=== PATIENT | male | born 1975 | race Caucasian/White ===

== ENCOUNTER 2023-01-06 09:56 | Inpatient (IN) ==
[2023-01-06] MEDS ORDERED: 0.9 % SODIUM CHLORIDE 1,000 ML IV ONE ×2 (10:13→14:12)
[2023-01-06] MEDS ORDERED: INSULIN REGULAR, HUMAN 50 UNIT in 0.9 % SODIUM CHLORIDE 99.5 ML IV SCH ×2 (10:30→11:45)
[2023-01-06 11:15] LABS: POC Calcium, Ionized 1.07 (1.16-1.32); POC Creatinine 1.2 (0.6-1.2); POC Potassium 6.2 (3.3-5.1)
--- NOTE | 2023-01-06 11:25 | Emergency Department Note ---
HPI General Chief complaint: Nausea/Vomiting/Diarrhea Stated complaint: nausea Time Seen by Provider: 01/06/23 10:13 Source: patient Mode of arrival: ambulatory Limitations: no limitations History of Present Illness HPI Narrative: 47-year-old male type I diabetic with poor control due to noncompliance presents to the ER with weakness, tachycardia, and shortness of breath. Patient states that he is on insulin pump, but this quit working 7 days ago. Since then he has been intermittently giving himself insulin but does not follow a protocol. He gave himself insulin yesterday, but does not know how much. He does not routinely check his blood sugars. Apparently he called tech-support for his insulin pump, but was unable to get this taken care of. On exam he is tachypneic with respiratory rate of 30, heart rate is 125. EKG shows a narrow complex tachycardia. The past medical history is significant for hypertension, hypothyroidism, anxiety, GERD, PTSD, ADHD. Related Data Home Medications Medication Instructions Recorded Confirmed cyclobenzaprine 10 mg tablet 10 mg PO QPM 07/05/22 01/06/23 ergocalciferol (vitamin D2) 1,250 1,250 mcg PO QWEEK 07/05/22 01/06/23 mcg (50,000 unit) capsule insulin aspart U-100 100 unit/mL 100 unit subcut DAILY 07/05/22 01/06/23 subcutaneous solution (Novolog U-100 Insulin aspart) levothyroxine 200 mcg tablet 200 mcg PO QDAY 07/05/22 01/06/23 lisinopril 10 mg tablet 10 mg PO BID 07/05/22 01/06/23 methocarbamol 500 mg tablet 500 mg PO TID PRN Pain 07/05/22 01/06/23 pregabalin 300 mg capsule 300 mg PO BID 07/05/22 01/06/23 albuterol sulfate 90 mcg/actuation 2 puff inhalation Q4H 08/17/22 01/06/23 aerosol inhaler fluticasone propionate 50 1 spray intranasal QDAY 08/17/22 01/06/23 mcg/actuation nasal spray,suspension ibuprofen 800 mg tablet 800 mg PO TID 08/17/22 01/06/23 rimegepant 75 mg disintegrating 75 mg PO QDAY 08/17/22 01/06/23 tablet (Nurtec ODT) dextroamphetamine-amphetamine ER 20 mg PO DAILY 01/06/23 01/06/23 30 mg 24hr capsule,extend release (Adderall XR) diazepam 5 mg tablet 5 mg PO DAILY 01/06/23 01/06/23 hydroxyzine HCl 50 mg tablet 50 mg PO Q4-6HP PRN anxiety 01/06/23 01/06/23 levothyroxine 175 mcg tablet 200 mcg PO DAILY 01/06/23 01/06/23 olanzapine 10 mg tablet 10 mg PO QPM 01/06/23 01/06/23 Allergies Allergy/AdvReac Type Severity Reaction Status Date / Time No Known Drug Allergies Allergy Verified 11/28/22 07:53 Review of Systems ROS ROS Narrative: Narrative: All systems ED: reviewed and negative except as stated. PFS Narrative Patient History Narrative: Narrative: Medical/Surgical/Family History All Active Problems (Updated 01/06/23 @ 15:33 by Clara Estrada PA-C) Contusion of rib on left side (Acute) Bipolar disorder (Chronic) Diabetic peripheral neuropathy (Chronic) Migraine (Chronic) Essential hypertension (Chronic) Multiple joint pain (Chronic) Headache (Chronic) Nausea (Chronic) Restless legs (Chronic) Vitamin D deficiency (Chronic) Abdominal bloating (Chronic) Asthma (Chronic) Chronic constipation (Chronic) Hypothyroidism (Chronic) Nocturnal leg cramps (Chronic) Type 1 diabetes mellitus (Chronic) Anxiety disorder (Chronic) GERD (gastroesophageal reflux disease) (Chronic) Chronic post-traumatic stress disorder (PTSD) (Chronic) ADHD (attention deficit hyperactivity disorder), combined type (Acute) DKA, type 1 (Acute) Acute metabolic encephalopathy (Acute) Sepsis (Acute) Medical History Abdominal bloating Anxiety disorder Asthma Bipolar disorder Chronic constipation Diabetic peripheral neuropathy Essential hypertension GERD (gastroesophageal reflux disease) Headache Hypothyroidism Migraine Multiple joint pain Nausea Nocturnal leg cramps Restless legs Type 1 diabetes mellitus Vitamin D deficiency Family History Father Hypertensive disorder Mental disorder Alcohol abuse Seizure Mother Hypertensive disorder Mental disorder Alcohol abuse Disorder of thyroid gland Social History Smoking Status: Current every day smoker Alcohol Intake Frequency: does not drink Substance Use: marijuana Exam Narrative Narrative: Narrative: General Limitations: no limitations Course Course Course Narrative: 47-year-old male presents in DKA Reevaluation(s) Reevaluation #1: Obtain DKA labs, lactic acid, beta hydroxybutyrate, EKG, UA Establish IV and give 2 L normal saline IV bolus Obtain UA Reevaluation #2: Bicarbonate is 4.1 with a pH of 7.01. Lactic acid is 4.6 Creatinine is within normal limits. Potassium is 6.2, corrected sodium is 138 EKG shows a narrow complex tachycardia. It appears irregular and is read as A flutter, question this accuracy given there seems to be a lot of artifact with this rapid respirations. We will reevaluate this once his acidosis is corrected. Reevaluation #3: Given a bicarb less than 5 with pH of 7.01. Bicarb deficit is over 1000 mEq. Give 50 mEq bicarbonate bolus and recheck CBG in about 30 minutes. White blood cell count was 22,400 and neutrophils are 22. He may have a superimposed sepsis picture with his DKA. We have ordered blood cultures and started high-dose IV Zosyn. Discussed case with hospitalist who recommends slowing rate down to see what und erlying rhythm is. We will give her 5 mg of IV metoprolol Time: 13:36 Additional Reevaluation(s): Patient has gluteal fold skin maceration, no cellulitis and no induration to suggest abscess. There is first-degree decubitus skin changes. Repeat VBG after a liter and a half of IV fluids and 1 amp of bicarb is worsening with pH is less than 7, bicarb is undetectable, and lactic acid is 5.67. Repeat EKG shows likely Aflutter with rate of 113 and prolonged QTx of 529 ms. Difficult to ascertain ST segment changes and a troponin is checked, which is 0.03 which is reassuring that this is not cardiac ischemia. 1420: Patients ABG with worsening perimeters. Considered sepsis and ordered 1L IVF bolus 30mL/Kg. This was bolused through his 18 gauge access in his right brachial with immediate infiltration of his IV suggesting that his Insulin had not been infusing. Patient is now getting central access. Please see Valdemar landa note for procedure details. Vital Signs Vital signs: Vital Signs Temperature 98.1 F 01/06/23 09:59 Pulse Rate 135 H 01/06/23 09:59 Respiratory Rate 28 H 01/06/23 09:59 Blood Pressure 156/101 01/06/23 09:59 Pulse Oximetry (%) 98 01/06/23 09:59 Oxygen Delivery Method Room Air 01/06/23 09:59 Temperature 98.1 F 01/06/23 09:59 Pulse Rate 148 H 01/06/23 16:00 Respiratory Rate 23 H 01/06/23 16:00 Blood Pressure 140/88 01/06/23 16:00 Pulse Oximetry (%) 100 01/06/23 16:00 Oxygen Delivery Method Room Air 01/06/23 14:01 MDM MDM Narrative Medical decision making narrative: DKA Type 1 diabetes Leukocytosis Metabolic encephalopathy Narrow complex tachycardia Patient will need admission for stabilization. He is currently on an insulin drip with rapid IV fluid replacement. The patients IV that was running insulin had been infiltrated, which is why his DKA had been worsening. A Right IJ central line was placed and his DKA is gradually stabilizing. He has received 3L IV NS and 150 meq bicarb bolus with Bicarb drip initiated. Heart rhythm appears to be Aflutter, which is new onset. Given his leukocytosis, blood cultures were drawn and they were only able to obtain 1 set from the central line due to poor access. 4.5G IV Zoysn given. Lab Data 01/06/23 11:03 01/06/23 11:03 Labs: Lab Results 01/06/23 01/06/23 01/06/23 Range/Units 11:03 11:03 11:03 WBC 24.3 H (4.5-11.0) K/mcL RBC 5.47 (4.63-6.08) M/mcL Hgb 16.3 (13.7-17.5) g/dL Hct 51.2 H (40.1-51.0) % POC Hct (41-55) MCV 93.6 (80.0-100.0) fL MCH 29.8 (26.0-34.0) pg MCHC 31.8 (31.0-36.0) g/dL RDW 14.8 H (11.5-14.5) % Plt Count 315 (140-440) K/mcL MPV 11.6 (8.8-12.5) fL Immature Gran % (Auto) 0.8 H (0.0-0.5) % Neut % (Auto) 92.4 H (38.0-78.0) % Lymph % (Auto) 2.6 L (15.5-49.0) % [place] % (Auto) 3.9 (1.0-12.0) % Eos % (Auto) 0.1 (0.0-7.0) % Baso % (Auto) 0.2 (0.0-2.0) % Lymph # (Auto) 0.63 L (1.50-4.80) K/mcL [place] # (Auto) 0.96 H (0.10-0.90) K/mcL Eos # (Auto) 0.02 (0.00-0.70) K/mcL Baso # (Auto) 0.06 (0.00-0.30) K/mcL Immature Gran # 0.19 H (0.00-0.05) K/mcl Absolute Neutrophils 22.46 H (1.80-8.00) K/mcL POC PT (11.9-14.5) POC INR (0.8-1.2) POC VBG pH (7.32-7.42) POC VBG pCO2 at Temp (41-51) POC VBG pO2 (25-40) POC VBG HCO3 (24-28) POC VBG Total CO2 (25-29) POC Venous O2 Sat (40-70) POC VBG Base Excess (-2-2) VBG Lactic Acid (0.5-2) POC Sodium (133-145) Sodium 125 L (133-145) mmol/L POC Potassium (3.3-5.1) Potassium 7.1 H* (3.3-5.1) mmol/L POC Chloride (96-108) Chloride 90 L (96-108) mmol/L Carbon Dioxide 4 L* (22-30) mmol/L POC Total CO2 (22-30) Anion Gap 31.0 H (8.0-16.0) POC BUN (6-20) BUN 26 H (6-20) mg/dL Creatinine 1.6 H (0.7-1.2) mg/dL POC Creatinine (0.6-1.2) GFR Calculation 50 Glucose 699 H* (70-105) mg/dL POC Glucose (70-105) Calcium 9.0 (8.6-10.4) mg/dL POC WB Ioniz Calcium (1.16-1.32) Magnesium (1.6-2.5) mg/dL Total Bilirubin 0.5 (0.1-1.0) mg/dL AST 15 (<40) U/L ALT 16 (<40) U/L Alkaline Phosphatase 145 H (39-117) U/L Total Protein 7.9 (5.9-8.4) gm/dL Albumin 4.3 (3.2-5.2) gm/dL Globulin 3.6 (2.2-3.7) gm/dL Albumin/Globulin Ratio 1.2 (1.0-2.3) Beta-Hydroxybutyrate 9.65 H (<0.27) mmol/L Urine Color Urine Appearance (Clear) Urine pH (5.0-9.0) Ur Specific [place] (1.000-1.035) Urine Protein (Negative) mg/dL Urine Glucose (UA) (Negative) mg/dL Urine Ketones (Negative) mg/dL Urine Occult Blood (Negative) mg/dL Urine Nitrate (Negative) Urine Bilirubin (Negative) mg/dL Urine Urobilinogen mg/dL Ur Leukocyte Esterase (Negative) /uL Urine RBC (0-3) /hpf Urine WBC (0-4) /hpf Ur Squamous Epith Cells (0-4) /hpf Urine Bacteria (0) /hpf Hyaline Casts (0-2) /lph Granular Casts (0-0) /lph Urine Mucus (None) /hpf Ur Culture Indicated? POC Troponin I (0.00-0.08) 01/06/23 01/06/23 01/06/23 Range/Units 11:09 11:12 11:34 WBC (4.5-11.0) K/mcL RBC (4.63-6.08) M/mcL Hgb (13.7-17.5) g/dL Hct (40.1-51.0) % POC Hct 51.0 (41-55) MCV (80.0-100.0) fL MCH (26.0-34.0) pg MCHC (31.0-36.0) g/dL RDW (11.5-14.5) % Plt Count (140-440) K/mcL MPV (8.8-12.5) fL Immature Gran % (Auto) (0.0-0.5) % Neut % (Auto) (38.0-78.0) % Lymph % (Auto) (15.5-49.0) % [place] % (Auto) (1.0-12.0) % Eos % (Auto) (0.0-7.0) % Baso % (Auto) (0.0-2.0) % Lymph # (Auto) (1.50-4.80) K/mcL [place] # (Auto) (0.10-0.90) K/mcL Eos # (Auto) (0.00-0.70) K/mcL Baso # (Auto) (0.00-0.30) K/mcL Immature Gran # (0.00-0.05) K/mcl Absolute Neutrophils (1.80-8.00) K/mcL POC PT (11.9-14.5) POC INR (0.8-1.2) POC VBG pH 7.01 L* (7.32-7.42) POC VBG pCO2 at Temp 16.4 L* (41-51) POC VBG pO2 57 H (25-40) POC VBG HCO3 4.1 L* (24-28) POC VBG Total CO2 < 5.0 L (25-29) POC Venous O2 Sat 74.0 H (40-70) POC VBG Base Excess -27.0 L (-2-2) VBG Lactic Acid 4.6 H* (0.5-2) POC Sodium 129 L (133-145) Sodium (133-145) mmol/L POC Potassium 6.2 H* (3.3-5.1) Potassium (3.3-5.1) mmol/L POC Chloride 105 (96-108) Chloride (96-108) mmol/L Carbon Dioxide (22-30) mmol/L POC Total CO2 6.0 L* (22-30) Anion Gap (8.0-16.0) POC BUN 26 H (6-20) BUN (6-20) mg/dL Creatinine (0.7-1.2) mg/dL POC Creatinine 1.2 (0.6-1.2) GFR Calculation Glucose (70-105) mg/dL POC Glucose 668 H* (70-105) Calcium (8.6-10.4) mg/dL POC WB Ioniz Calcium 1.07 L (1.16-1.32) Magnesium 2.3 (1.6-2.5) mg/dL Total Bilirubin (0.1-1.0) mg/dL AST (<40) U/L ALT (<40) U/L Alkaline Phosphatase (39-117) U/L Total Protein (5.9-8.4) gm/dL Albumin (3.2-5.2) gm/dL Globulin (2.2-3.7) gm/dL Albumin/Globulin Ratio (1.0-2.3) Beta-Hydroxybutyrate (<0.27) mmol/L Urine Color Urine Appearance (Clear) Urine pH (5.0-9.0) Ur Specific [place] (1.000-1.035) Urine Protein (Negative) mg/dL Urine Glucose (UA) (Negative) mg/dL Urine Ketones (Negative) mg/dL Urine Occult Blood (Negative) mg/dL Urine Nitrate (Negative) Urine Bilirubin (Negative) mg/dL Urine Urobilinogen mg/dL Ur Leukocyte Esterase (Negative) /uL Urine RBC (0-3) /hpf Urine WBC (0-4) /hpf Ur Squamous Epith Cells (0-4) /hpf Urine Bacteria (0) /hpf Hyaline Casts (0-2) /lph Granular Casts (0-0) /lph Urine Mucus (None) /hpf Ur Culture Indicated? POC Troponin I (0.00-0.08) 01/06/23 01/06/23 01/06/23 Range/Units 12:55 13:29 14:25 WBC (4.5-11.0) K/mcL RBC (4.63-6.08) M/mcL Hgb (13.7-17.5) g/dL Hct (40.1-51.0) % POC Hct (41-55) MCV (80.0-100.0) fL MCH (26.0-34.0) pg MCHC (31.0-36.0) g/dL RDW (11.5-14.5) % Plt Count (140-440) K/mcL MPV (8.8-12.5) fL Immature Gran % (Auto) (0.0-0.5) % Neut % (Auto) (38.0-78.0) % Lymph % (Auto) (15.5-49.0) % [place] % (Auto) (1.0-12.0) % Eos % (Auto) (0.0-7.0) % Baso % (Auto) (0.0-2.0) % Lymph # (Auto) (1.50-4.80) K/mcL [place] # (Auto) (0.10-0.90) K/mcL Eos # (Auto) (0.00-0.70) K/mcL Baso # (Auto) (0.00-0.30) K/mcL Immature Gran # (0.00-0.05) K/mcl Absolute Neutrophils (1.80-8.00) K/mcL POC PT 17.7 H (11.9-14.5) POC INR 1.5 H (0.8-1.2) POC VBG pH (7.32-7.42) POC VBG pCO2 at Temp (41-51) POC VBG pO2 (25-40) POC VBG HCO3 (24-28) POC VBG Total CO2 (25-29) POC Venous O2 Sat (40-70) POC VBG Base Excess (-2-2) VBG Lactic Acid (0.5-2) POC Sodium (133-145) Sodium (133-145) mmol/L POC Potassium (3.3-5.1) Potassium (3.3-5.1) mmol/L POC Chloride (96-108) Chloride (96-108) mmol/L Carbon Dioxide (22-30) mmol/L POC Total CO2 (22-30) Anion Gap (8.0-16.0) POC BUN (6-20) BUN (6-20) mg/dL Creatinine (0.7-1.2) mg/dL POC Creatinine (0.6-1.2) GFR Calculation Glucose (70-105) mg/dL POC Glucose (70-105) Calcium (8.6-10.4) mg/dL POC WB Ioniz Calcium (1.16-1.32) Magnesium (1.6-2.5) mg/dL Total Bilirubin (0.1-1.0) mg/dL AST (<40) U/L ALT (<40) U/L Alkaline Phosphatase (39-117) U/L Total Protein (5.9-8.4) gm/dL Albumin (3.2-5.2) gm/dL Globulin (2.2-3.7) gm/dL Albumin/Globulin Ratio (1.0-2.3) Beta-Hydroxybutyrate (<0.27) mmol/L Urine Color Yellow Urine Appearance Clear (Clear) Urine pH 5.0 (5.0-9.0) Ur Specific [place] 1.021 (1.000-1.035) Urine Protein 30 A (Negative) mg/dL Urine Glucose (UA) >=500 A (Negative) mg/dL Urine Ketones 80 A (Negative) mg/dL Urine Occult Blood 0.03 (Negative) mg/dL Urine Nitrate Negative (Negative) Urine Bilirubin Negative (Negative) mg/dL Urine Urobilinogen Negative mg/dL Ur Leukocyte Esterase Negative (Negative) /uL Urine RBC < 1 (0-3) /hpf Urine WBC 1 (0-4) /hpf Ur Squamous Epith Cells 0 (0-4) /hpf Urine Bacteria None (0) /hpf Hyaline Casts 9 H (0-2) /lph Granular Casts 1 H (0-0) /lph Urine Mucus Few A (None) /hpf Ur Culture Indicated? No POC Troponin I 0.03 (0.00-0.08) 01/06/23 01/06/23 01/06/23 Range/Units 15:06 16:01 16:02 WBC (4.5-11.0) K/mcL RBC (4.63-6.08) M/mcL Hgb (13.7-17.5) g/dL Hct (40.1-51.0) % POC Hct 50.0 (41-55) MCV (80.0-100.0) fL MCH (26.0-34.0) pg MCHC (31.0-36.0) g/dL RDW (11.5-14.5) % Plt Count (140-440) K/mcL MPV (8.8-12.5) fL Immature Gran % (Auto) (0.0-0.5) % Neut % (Auto) (38.0-78.0) % Lymph % (Auto) (15.5-49.0) % [place] % (Auto) (1.0-12.0) % Eos % (Auto) (0.0-7.0) % Baso % (Auto) (0.0-2.0) % Lymph # (Auto) (1.50-4.80) K/mcL [place] # (Auto) (0.10-0.90) K/mcL Eos # (Auto) (0.00-0.70) K/mcL Baso # (Auto) (0.00-0.30) K/mcL Immature Gran # (0.00-0.05) K/mcl Absolute Neutrophils (1.80-8.00) K/mcL POC PT (11.9-14.5) POC INR (0.8-1.2) POC VBG pH 7.16 L* (7.32-7.42) POC VBG pCO2 at Temp 15.1 L* (41-51) POC VBG pO2 44 H (25-40) POC VBG HCO3 5.4 L* (24-28) POC VBG Total CO2 6.0 L (25-29) POC Venous O2 Sat 68.0 (40-70) POC VBG Base Excess -23.0 L (-2-2) VBG Lactic Acid 2.9 H 2.4 H (0.5-2) POC Sodium 132 L (133-145) Sodium (133-145) mmol/L POC Potassium 4.2 (3.3-5.1) Potassium (3.3-5.1) mmol/L POC Chloride 105 (96-108) Chloride (96-108) mmol/L Carbon Dioxide (22-30) mmol/L POC Total CO2 7.0 L* (22-30) Anion Gap (8.0-16.0) POC BUN 25 H (6-20) BUN (6-20) mg/dL Creatinine (0.7-1.2) mg/dL POC Creatinine 1.1 (0.6-1.2) GFR Calculation Glucose (70-105) mg/dL POC Glucose 453 H* (70-105) Calcium (8.6-10.4) mg/dL POC WB Ioniz Calcium 1.07 L (1.16-1.32) Magnesium (1.6-2.5) mg/dL Total Bilirubin (0.1-1.0) mg/dL AST (<40) U/L ALT (<40) U/L Alkaline Phosphatase (39-117) U/L Total Protein (5.9-8.4) gm/dL Albumin (3.2-5.2) gm/dL Globulin (2.2-3.7) gm/dL Albumin/Globulin Ratio (1.0-2.3) Beta-Hydroxybutyrate (<0.27) mmol/L Urine Color Urine Appearance (Clear) Urine pH (5.0-9.0) Ur Specific [place] (1.000-1.035) Urine Protein (Negative) mg/dL Urine Glucose (UA) (Negative) mg/dL Urine Ketones (Negative) mg/dL Urine Occult Blood (Negative) mg/dL Urine Nitrate (Negative) Urine Bilirubin (Negative) mg/dL Urine Urobilinogen mg/dL Ur Leukocyte Esterase (Negative) /uL Urine RBC (0-3) /hpf Urine WBC (0-4) /hpf Ur Squamous Epith Cells (0-4) /hpf Urine Bacteria (0) /hpf Hyaline Casts (0-2) /lph Granular Casts (0-0) /lph Urine Mucus (None) /hpf Ur Culture Indicated? POC Troponin I (0.00-0.08) Discharge Plan Patient/Caregiver Discharge Instructions Pt seen by [employer] WORK[employer]/PA only: No Clinical Impression: DKA, type 1, Acute metabolic encephalopathy, Sepsis Patient Disposition: Xfer As Inpt ([facility]) Discharge Date/Time: 01/06/23 16:15
[2023-01-06] MEDS ORDERED: INSULIN REGULAR, HUMAN 1 UNIT/0.01 ML UNIT ONE (11:40)
[2023-01-06 12:14] LABS: Basophils # (Auto) 0.06 K/mcL (0.00-0.30); Basophils % (Auto) 0.2 % (0.0-2.0); Eosinophils # (Auto) 0.02 K/mcL (0.00-0.70); Eosinophils % (Auto) 0.1 % (0.0-7.0); Hematocrit 51.2 % (40.1-51.0); Hemoglobin 16.3 g/dL (13.7-17.5); Lymphocytes # (Auto) 0.63 K/mcL (1.50-4.80); Lymphocytes % (Auto) 2.6 % (15.5-49.0); Mean Cell Volume 93.6 fL (80.0-100.0); Mean Corpuscular HGB Conc 31.8 g/dL (31.0-36.0); Mean Platelet Volume 11.6 fL (8.8-12.5); Monocytes # (Auto) 0.96 K/mcL (0.10-0.90); Monocytes % (Auto) 3.9 % (1.0-12.0); Neutrophils % (Auto) 92.4 % (38.0-78.0); Platelet Count 315 K/mcL (140-440); RBC 5.47 M/mcL (4.63-6.08); Red Cell Distribution Width 14.8 % (11.5-14.5); WBC 24.3 K/mcL (4.5-11.0)
[2023-01-06] MEDS ORDERED: SODIUM BICARBONATE 50 MEQ/50 ML VIAL ONE ×3 (12:14→15:34)
[2023-01-06] MEDS ORDERED: SODIUM BICARBONATE VIAL 100 MEQ in DEXTROSE 5% IN WATER 900 ML IV SCH (12:15)
--- NOTE | 2023-01-06 12:19 | Internal Med History&Physical ---
HPI History of Present Illness Patient information: Note initiated : 01/06/23 at 12:15 pm Service Date, if different from initiated Date: [] Patient: Bo Kee 47 y/o M admitted on for nausea. Chief Complaint: [] History of present illness: History of Present Illness 47-year-old male with history of poorly controlled diabetes mellitus 1, noncompliance with medication, hypertension, hypothyroidism, anxiety, PTSD, ADHD, GERD presented with nausea, vomiting, generalized weakness, palpitations for the past 5 to 7 days. Patient is on insulin pump but this stopped working around 7 days ago. Since then he has been guessing insulin dose and giving himself insulin intermittently without following any protocol and has not checked his blood glucose for the past 1 week. He gave himself insulin yesterday but does not know how much. Apparently he called customer support for his insulin pump but was unable to take care of that. His significant other reported that patient is also somewhat confused. On evaluation patient was tachycardic with heart rate ranging from 116-140s, tachypneic with respiratory rate 28-43. Blood pressure was slightly elevated. EKG showed atrial flutter, with heart rate 145 bpm. Troponin obtained was negative. Patient did not have any chest pain., Labs showed leukocytosis of 24,000, hemoglobin 16.3, VBG with pH 7.01, bicarb 4.1 bicarbonate is 4.1. Lactic acid is 4.6. Potassium 6.2. Glucose of 699. Creatinine is within normal limits. Potassium is 6.2, corrected sodium is 138. Chest x-ray showed no acute finding. UA unremarkable. No apparent source of infection. Patient will be admitted to ICU for severe diabetic ketoacidosis, metabolic encephalopathy atrial flutter, hyperkalemia on IV insulin DKA protocol. Review of system Patient reports weakness, nausea, vomiting but no diarrhea Patient is somewhat confused but no focal deficits no headache Patient reports no chest pain, no palpitation no diaphoresis Excessive thirst reported, polyuria No muscle pain No skin lesions Physical examination Patient was somewhat somnolent, appeared critically ill, his eyes were closed, he was dehydrated however was able to answer questions and would open eyes Normocephalic, atraumatic Oral mucosa was very dry S1 and S2, tachycardia with heart rate in 130s, rhythm appeared regular, no murmurs heard Abdomen soft and nontender Somewhat somnolent, becomes alert, no focal deficits Mood appears stable Skin appears very dry with poor turgor, no erythema or rashes noted Assessment and plan Severe diabetic ketoacidosis, beta-hydroxybutyrate 9.65, lactic acid 4.6, PH 7.01, bicarb 4.1 on VBG, chem with CO2 of 4, AG 31 Anion gap acidosis Admitted to ICU on IV insulin per DKA protocol Patient received bicarb 150 meq, given severe acidosis continue on bicarb drip Continue IV fluids, lactic acidosis is clear during ABGs to monitor acidosis Monitor renal functions and electrolytes and replace as needed Diabetes mellitus 2 with hyperglycemia of 699 Patient with noncompliance with insulin. Insulin pump stopped working 7 days ago. Will obtain A1c. Currently on IV insulin Noncompliance with medical therapy Counseled on compliance Hyperkalemia Expected to improve with insulin and fluids will monitor Metabolic encephalopathy Secondary to DKA and severe acidosis. Atrial flutter with RVR New onset, patient received IV metoprolol with improvement in heart rate. Will continue with IV diltiazem gtt., echocardiogram ordered. [id number] score is 1 Significant leukocytosis UA and chest x-ray negative. Patient received 1 dose of Zosyn. Will monitor and will keep a low threshold for initiating antibiotics if any fever Hyponatremia Pseudohyponatremia in the setting of hyperglycemia. Hypertension Currently elevated blood pressure, will manage with IV hydralazine Hypothyroidism Obtain TSH, continue with levothyroxine 200 mcg daily home dose Asthma Continue fluticasone nasal spray and as needed albuterol Anxiety, PTSD, ADHD Continue home dose Adderall, hydroxyzine GERD Continue famotidine IV twice daily DVT prophylaxis SCDs CODE STATUS Full code PFSH PFSH All Active Problems (Updated 01/06/23 @ 15:33 by lCara Estrada PA-C) Contusion of rib on left side (Acute) Bipolar disorder (Chronic) Diabetic peripheral neuropathy (Chronic) Migraine (Chronic) Essential hypertension (Chronic) Multiple joint pain (Chronic) Headache (Chronic) Nausea (Chronic) Restless legs (Chronic) Vitamin D deficiency (Chronic) Abdominal bloating (Chronic) Asthma (Chronic) Chronic constipation (Chronic) Hypothyroidism (Chronic) Nocturnal leg cramps (Chronic) Type 1 diabetes mellitus (Chronic) Anxiety disorder (Chronic) GERD (gastroesophageal reflux disease) (Chronic) Chronic post-traumatic stress disorder (PTSD) (Chronic) ADHD (attention deficit hyperactivity disorder), combined type (Acute) DKA, type 1 (Acute) Acute metabolic encephalopathy (Acute) Sepsis (Acute) Medical History Abdominal bloating Anxiety disorder Asthma Bipolar disorder Chronic constipation Diabetic peripheral neuropathy Essential hypertension GERD (gastroesophageal reflux disease) Headache Hypothyroidism Migraine Multiple joint pain Nausea Nocturnal leg cramps Restless legs Type 1 diabetes mellitus Vitamin D deficiency Family History Father Hypertensive disorder Mental disorder Alcohol abuse Seizure Mother Hypertensive disorder Mental disorder Alcohol abuse Disorder of thyroid gland Social History 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 smoking status: Current every day smoker tobacco type: cigarettes per day: 1 alcohol intake frequency: does not drink substance use type: marijuana MEDS/ALLERGIES Home Medications and Allergies Home Medications Medication Instructions Recorded Confirmed Type cyclobenzaprine 10 mg tablet 10 mg PO QPM 07/05/22 01/06/23 History ergocalciferol (vitamin D2) 1,250 1,250 mcg PO QWEEK 07/05/22 01/06/23 History mcg (50,000 unit) capsule insulin aspart U-100 100 unit/mL 100 unit subcut DAILY 07/05/22 01/06/23 History subcutaneous solution (Novolog U-100 Insulin aspart) levothyroxine 200 mcg tablet 200 mcg PO QDAY 07/05/22 01/06/23 History lisinopril 10 mg tablet 10 mg PO BID 07/05/22 01/06/23 History methocarbamol 500 mg tablet 500 mg PO TID PRN Pain 07/05/22 01/06/23 History pregabalin 300 mg capsule 300 mg PO BID 07/05/22 01/06/23 History albuterol sulfate 90 mcg/actuation 2 puff inhalation Q4H 08/17/22 01/06/23 History aerosol inhaler fluticasone propionate 50 1 spray intranasal QDAY 08/17/22 01/06/23 History mcg/actuation nasal spray,suspension ibuprofen 800 mg tablet 800 mg PO TID 08/17/22 01/06/23 History rimegepant 75 mg disintegrating 75 mg PO QDAY 08/17/22 01/06/23 History tablet (Nurtec ODT) dextroamphetamine-amphetamine ER 20 mg PO DAILY 01/06/23 01/06/23 History 30 mg 24hr capsule,extend release (Adderall XR) diazepam 5 mg tablet 5 mg PO DAILY 01/06/23 01/06/23 History hydroxyzine HCl 50 mg tablet 50 mg PO Q4-6HP PRN anxiety 01/06/23 01/06/23 History levothyroxine 175 mcg tablet 200 mcg PO DAILY 01/06/23 01/06/23 History olanzapine 10 mg tablet 10 mg PO QPM 01/06/23 01/06/23 History Allergies Allergy/AdvReac Type Severity Reaction Status Date / Time No Known Drug Allergies Allergy Verified 11/28/22 07:53 EXAM Constitutional Vitals: Temp Pulse Resp BP Pulse Ox O2 Del Method 98.1 F 134 H 31 H 174/102 100 Room Air 01/06/23 09:59 01/06/23 11:52 01/06/23 11:52 01/06/23 11:47 01/06/23 11:52 01/06/23 09:59 DATA Data Completed and Pending Labs: Labs from last 24 hours 01/06/23 01/06/23 01/06/23 11:12 11:09 11:03 WBC RBC Hgb Hct POC Hct 51.0 MCV MCH MCHC RDW Plt Count MPV Immature Gran % (Auto) Neut % (Auto) Lymph % (Auto) [place] % (Auto) Eos % (Auto) Baso % (Auto) Lymph # (Auto) [place] # (Auto) Eos # (Auto) Baso # (Auto) Immature Gran # Absolute Neutrophils POC VBG pH 7.01 L* POC VBG pCO2 at Temp 16.4 L* POC VBG pO2 57 H POC VBG HCO3 4.1 L* POC VBG Total CO2 < 5.0 L POC Venous O2 Sat 74.0 H POC VBG Base Excess -27.0 L VBG Lactic Acid 4.6 H* POC Sodium 129 L Sodium POC Potassium 6.2 H* Potassium POC Chloride 105 Chloride Carbon Dioxide POC Total CO2 6.0 L* Anion Gap POC BUN 26 H BUN Creatinine POC Creatinine 1.2 GFR Calculation Glucose POC Glucose 668 H* Calcium POC WB Ioniz Calcium 1.07 L Total Bilirubin AST ALT Alkaline Phosphatase Total Protein Albumin Globulin Albumin/Globulin Ratio Beta-Hydroxybutyrate Pending 01/06/23 01/06/23 11:03 11:03 WBC 24.3 H RBC 5.47 Hgb 16.3 Hct 51.2 H POC Hct MCV 93.6 MCH 29.8 MCHC 31.8 RDW 14.8 H Plt Count 315 MPV 11.6 Immature Gran % (Auto) 0.8 H Neut % (Auto) 92.4 H Lymph % (Auto) 2.6 L [place] % (Auto) 3.9 Eos % (Auto) 0.1 Baso % (Auto) 0.2 Lymph # (Auto) 0.63 L [place] # (Auto) 0.96 H Eos # (Auto) 0.02 Baso # (Auto) 0.06 Immature Gran # 0.19 H Absolute Neutrophils 22.46 H POC VBG pH POC VBG pCO2 at Temp POC VBG pO2 POC VBG HCO3 POC VBG Total CO2 POC Venous O2 Sat POC VBG Base Excess VBG Lactic Acid POC Sodium Sodium Pending POC Potassium Potassium Pending POC Chloride Chloride Pending Carbon Dioxide Pending POC Total CO2 Anion Gap Pending POC BUN BUN Pending Creatinine Pending POC Creatinine GFR Calculation Pending Glucose Pending POC Glucose Calcium Pending POC WB Ioniz Calcium Total Bilirubin Pending AST Pending ALT Pending Alkaline Phosphatase Pending Total Protein Pending Albumin Pending Globulin Pending Albumin/Globulin Ratio Pending Beta-Hydroxybutyrate A/P Time Spent With Patient Time: Total time spent is greater than 50% in coordination of care (as documented) at patient's floor/unit and/or counseling patient: Initial: Total time with patient: Greater than 90 minutes Subsequent: Total time with patient: 35 - 49 minutes Critical Care Time: Yes
[2023-01-06] MEDS: SODIUM BICARBONATE 50 MEQ/50 ML VIAL IV ONE ×2 (12:20→12:35)
[2023-01-06] MEDS ORDERED: METOPROLOL TARTRATE 5 MG/5 ML VIAL IV ONE (12:22)
[2023-01-06 12:45] LABS: ALT/SGPT 16 U/L (<40); AST/SGOT 15 U/L (<40); Albumin 4.3 gm/dL (3.2-5.2); Albumin/Globulin Ratio 1.2 (1.0-2.3); Alkaline Phosphatase 145 U/L (39-117); Bilirubin,Total 0.5 mg/dL (0.1-1.0); Blood Urea Nitrogen 26 mg/dL (6-20); Carbon Dioxide 4 mmol/L (22-30); Chloride 90 mmol/L (96-108); Globulin 3.6 gm/dL (2.2-3.7); Glomerular Filtration Rate 50; Glucose 699 mg/dL (70-105)
[2023-01-06 13:27] LABS: Beta Hydroxybutyrate 9.65 mmol/L (<0.27)
[2023-01-06] MEDS ORDERED: SODIUM BICARBONATE 50 MEQ/50 ML VIAL IV ONE ×2 (13:37→13:41)
[2023-01-06 13:47] LABS: Appearance,Urine CLEAR (Clear); Bilirubin,Urine Negative (Negative); Color,Urine YELLOW; Culture Indicated,Urine No; Glucose,Urine (UA) >=500 mg/dL (Negative); Ketones,Urine 80 mg/dL (Negative); Leukocyte Esterase,Urine Negative /uL (Negative); Mucus,Urine FEW /hpf; Nitrate,Urine Negative (Negative); Protein,Urine 30 mg/dL (Negative); Specific Gravity,Urine 1.021 (1.000-1.035); Urine Blood 0.03 mg/dL (Negative); Urine Granular Cast 1 /lph (0-0); Urine Hyaline Cast 9 /lph (0-2); Urine RBC < 1 /hpf (0-3); Urine Squamous Epithelial Cell 0 /hpf (0-4); Urine WBC 1 /hpf (0-4); Urobilinogen,Urine Negative
[2023-01-06] MEDS ORDERED: SODIUM BICARBONATE VIAL 50 MEQ in DEXTROSE 5% IN WATER 1,000 ML IV SCH ×2 (14:00→15:30)
[2023-01-06] MEDS ORDERED: SODIUM CHLORIDE IV ONE (14:05)
[2023-01-06] MEDS ORDERED: PIPERACILLIN SODIUM/TAZOBACTAM 4.5 GM in DEXTROSE 5% IN WATER 50 ML IV ONE (14:08)
[2023-01-06 14:40] LABS: POC INR 1.5 (0.8-1.2); POC Pro Time 17.7 (11.9-14.5)
--- NOTE | 2023-01-06 15:11 | XRay Report ---
CLINICAL INFORMATION: post central line COMPARISON: None. FINDINGS: Right right IJ central line tip overlies the SVC right atrial junction in satisfactory position. There is no pneumothorax or other complication from line placement. Heart size, mediastinum and pulmonary vessels are normal. The lungs are clear. No effusions. IMPRESSION: Negative Interpreted and Authenticated by: Daniel De León 01/06/23
[2023-01-06 16:05] LABS: POC Calcium, Ionized 1.07 (1.16-1.32); POC Creatinine 1.1 (0.6-1.2); POC Potassium 4.2 (3.3-5.1)
--- NOTE | 2023-01-06 16:25 | Procedure Note ---
Procedures CVP Indication: Venous access Location: IJ Right / Left: Right Preparation: Sterile field and Other (Chloraprep) Anesthesia: Lidocaine Amount: 2 mL Post Procedure: Adequate blood return, Adequate fluid flow and Equal bilateral breath sounds Patient Tolerated: Well Complications: None Time: 30 Minutes MDM MDM Narrative Medical decision making narrative: Narrative: Lab Data 01/06/23 11:03 01/06/23 11:03 Labs: Lab Results 01/06/23 01/06/23 01/06/23 Range/Units 11:03 11:03 11:03 WBC 24.3 H (4.5-11.0) K/mcL RBC 5.47 (4.63-6.08) M/mcL Hgb 16.3 (13.7-17.5) g/dL Hct 51.2 H (40.1-51.0) % POC Hct (41-55) MCV 93.6 (80.0-100.0) fL MCH 29.8 (26.0-34.0) pg MCHC 31.8 (31.0-36.0) g/dL RDW 14.8 H (11.5-14.5) % Plt Count 315 (140-440) K/mcL MPV 11.6 (8.8-12.5) fL Immature Gran % (Auto) 0.8 H (0.0-0.5) % Neut % (Auto) 92.4 H (38.0-78.0) % Lymph % (Auto) 2.6 L (15.5-49.0) % [place] % (Auto) 3.9 (1.0-12.0) % Eos % (Auto) 0.1 (0.0-7.0) % Baso % (Auto) 0.2 (0.0-2.0) % Lymph # (Auto) 0.63 L (1.50-4.80) K/mcL [place] # (Auto) 0.96 H (0.10-0.90) K/mcL Eos # (Auto) 0.02 (0.00-0.70) K/mcL Baso # (Auto) 0.06 (0.00-0.30) K/mcL Immature Gran # 0.19 H (0.00-0.05) K/mcl Absolute Neutrophils 22.46 H (1.80-8.00) K/mcL POC PT (11.9-14.5) POC INR (0.8-1.2) POC VBG pH (7.32-7.42) POC VBG pCO2 at Temp (41-51) POC VBG pO2 (25-40) POC VBG HCO3 (24-28) POC VBG Total CO2 (25-29) POC Venous O2 Sat (40-70) POC VBG Base Excess (-2-2) VBG Lactic Acid (0.5-2) POC Sodium (133-145) Sodium 125 L (133-145) mmol/L POC Potassium (3.3-5.1) Potassium 7.1 H* (3.3-5.1) mmol/L POC Chloride (96-108) Chloride 90 L (96-108) mmol/L Carbon Dioxide 4 L* (22-30) mmol/L POC Total CO2 (22-30) Anion Gap 31.0 H (8.0-16.0) POC BUN (6-20) BUN 26 H (6-20) mg/dL Creatinine 1.6 H (0.7-1.2) mg/dL POC Creatinine (0.6-1.2) GFR Calculation 50 Glucose 699 H* (70-105) mg/dL POC Glucose (70-105) Calcium 9.0 (8.6-10.4) mg/dL POC WB Ioniz Calcium (1.16-1.32) Magnesium (1.6-2.5) mg/dL Total Bilirubin 0.5 (0.1-1.0) mg/dL AST 15 (<40) U/L ALT 16 (<40) U/L Alkaline Phosphatase 145 H (39-117) U/L Total Protein 7.9 (5.9-8.4) gm/dL Albumin 4.3 (3.2-5.2) gm/dL Globulin 3.6 (2.2-3.7) gm/dL Albumin/Globulin Ratio 1.2 (1.0-2.3) Beta-Hydroxybutyrate 9.65 H (<0.27) mmol/L Urine Color Urine Appearance (Clear) Urine pH (5.0-9.0) Ur Specific [place] (1.000-1.035) Urine Protein (Negative) mg/dL Urine Glucose (UA) (Negative) mg/dL Urine Ketones (Negative) mg/dL Urine Occult Blood (Negative) mg/dL Urine Nitrate (Negative) Urine Bilirubin (Negative) mg/dL Urine Urobilinogen mg/dL Ur Leukocyte Esterase (Negative) /uL Urine RBC (0-3) /hpf Urine WBC (0-4) /hpf Ur Squamous Epith Cells (0-4) /hpf Urine Bacteria (0) /hpf Hyaline Casts (0-2) /lph Granular Casts (0-0) /lph Urine Mucus (None) /hpf Ur Culture Indicated? POC Troponin I (0.00-0.08) 01/06/23 01/06/23 01/06/23 Range/Units 11:09 11:12 11:34 WBC (4.5-11.0) K/mcL RBC (4.63-6.08) M/mcL Hgb (13.7-17.5) g/dL Hct (40.1-51.0) % POC Hct 51.0 (41-55) MCV (80.0-100.0) fL MCH (26.0-34.0) pg MCHC (31.0-36.0) g/dL RDW (11.5-14.5) % Plt Count (140-440) K/mcL MPV (8.8-12.5) fL Immature Gran % (Auto) (0.0-0.5) % Neut % (Auto) (38.0-78.0) % Lymph % (Auto) (15.5-49.0) % [place] % (Auto) (1.0-12.0) % Eos % (Auto) (0.0-7.0) % Baso % (Auto) (0.0-2.0) % Lymph # (Auto) (1.50-4.80) K/mcL [place] # (Auto) (0.10-0.90) K/mcL Eos # (Auto) (0.00-0.70) K/mcL Baso # (Auto) (0.00-0.30) K/mcL Immature Gran # (0.00-0.05) K/mcl Absolute Neutrophils (1.80-8.00) K/mcL POC PT (11.9-14.5) POC INR (0.8-1.2) POC VBG pH 7.01 L* (7.32-7.42) POC VBG pCO2 at Temp 16.4 L* (41-51) POC VBG pO2 57 H (25-40) POC VBG HCO3 4.1 L* (24-28) POC VBG Total CO2 < 5.0 L (25-29) POC Venous O2 Sat 74.0 H (40-70) POC VBG Base Excess -27.0 L (-2-2) VBG Lactic Acid 4.6 H* (0.5-2) POC Sodium 129 L (133-145) Sodium (133-145) mmol/L POC Potassium 6.2 H* (3.3-5.1) Potassium (3.3-5.1) mmol/L POC Chloride 105 (96-108) Chloride (96-108) mmol/L Carbon Dioxide (22-30) mmol/L POC Total CO2 6.0 L* (22-30) Anion Gap (8.0-16.0) POC BUN 26 H (6-20) BUN (6-20) mg/dL Creatinine (0.7-1.2) mg/dL POC Creatinine 1.2 (0.6-1.2) GFR Calculation Glucose (70-105) mg/dL POC Glucose 668 H* (70-105) Calcium (8.6-10.4) mg/dL POC WB Ioniz Calcium 1.07 L (1.16-1.32) Magnesium 2.3 (1.6-2.5) mg/dL Total Bilirubin (0.1-1.0) mg/dL AST (<40) U/L ALT (<40) U/L Alkaline Phosphatase (39-117) U/L Total Protein (5.9-8.4) gm/dL Albumin (3.2-5.2) gm/dL Globulin (2.2-3.7) gm/dL Albumin/Globulin Ratio (1.0-2.3) Beta-Hydroxybutyrate (<0.27) mmol/L Urine Color Urine Appearance (Clear) Urine pH (5.0-9.0) Ur Specific [place] (1.000-1.035) Urine Protein (Negative) mg/dL Urine Glucose (UA) (Negative) mg/dL Urine Ketones (Negative) mg/dL Urine Occult Blood (Negative) mg/dL Urine Nitrate (Negative) Urine Bilirubin (Negative) mg/dL Urine Urobilinogen mg/dL Ur Leukocyte Esterase (Negative) /uL Urine RBC (0-3) /hpf Urine WBC (0-4) /hpf Ur Squamous Epith Cells (0-4) /hpf Urine Bacteria (0) /hpf Hyaline Casts (0-2) /lph Granular Casts (0-0) /lph Urine Mucus (None) /hpf Ur Culture Indicated? POC Troponin I (0.00-0.08) 01/06/23 01/06/23 01/06/23 Range/Units 12:55 13:29 14:25 WBC (4.5-11.0) K/mcL RBC (4.63-6.08) M/mcL Hgb (13.7-17.5) g/dL Hct (40.1-51.0) % POC Hct (41-55) MCV (80.0-100.0) fL MCH (26.0-34.0) pg MCHC (31.0-36.0) g/dL RDW (11.5-14.5) % Plt Count (140-440) K/mcL MPV (8.8-12.5) fL Immature Gran % (Auto) (0.0-0.5) % Neut % (Auto) (38.0-78.0) % Lymph % (Auto) (15.5-49.0) % [place] % (Auto) (1.0-12.0) % Eos % (Auto) (0.0-7.0) % Baso % (Auto) (0.0-2.0) % Lymph # (Auto) (1.50-4.80) K/mcL [place] # (Auto) (0.10-0.90) K/mcL Eos # (Auto) (0.00-0.70) K/mcL Baso # (Auto) (0.00-0.30) K/mcL Immature Gran # (0.00-0.05) K/mcl Absolute Neutrophils (1.80-8.00) K/mcL POC PT 17.7 H (11.9-14.5) POC INR 1.5 H (0.8-1.2) POC VBG pH (7.32-7.42) POC VBG pCO2 at Temp (41-51) POC VBG pO2 (25-40) POC VBG HCO3 (24-28) POC VBG Total CO2 (25-29) POC Venous O2 Sat (40-70) POC VBG Base Excess (-2-2) VBG Lactic Acid (0.5-2) POC Sodium (133-145) Sodium (133-145) mmol/L POC Potassium (3.3-5.1) Potassium (3.3-5.1) mmol/L POC Chloride (96-108) Chloride (96-108) mmol/L Carbon Dioxide (22-30) mmol/L POC Total CO2 (22-30) Anion Gap (8.0-16.0) POC BUN (6-20) BUN (6-20) mg/dL Creatinine (0.7-1.2) mg/dL POC Creatinine (0.6-1.2) GFR Calculation Glucose (70-105) mg/dL POC Glucose (70-105) Calcium (8.6-10.4) mg/dL POC WB Ioniz Calcium (1.16-1.32) Magnesium (1.6-2.5) mg/dL Total Bilirubin (0.1-1.0) mg/dL AST (<40) U/L ALT (<40) U/L Alkaline Phosphatase (39-117) U/L Total Protein (5.9-8.4) gm/dL Albumin (3.2-5.2) gm/dL Globulin (2.2-3.7) gm/dL Albumin/Globulin Ratio (1.0-2.3) Beta-Hydroxybutyrate (<0.27) mmol/L Urine Color Yellow Urine Appearance Clear (Clear) Urine pH 5.0 (5.0-9.0) Ur Specific [place] 1.021 (1.000-1.035) Urine Protein 30 A (Negative) mg/dL Urine Glucose (UA) >=500 A (Negative) mg/dL Urine Ketones 80 A (Negative) mg/dL Urine Occult Blood 0.03 (Negative) mg/dL Urine Nitrate Negative (Negative) Urine Bilirubin Negative (Negative) mg/dL Urine Urobilinogen Negative mg/dL Ur Leukocyte Esterase Negative (Negative) /uL Urine RBC < 1 (0-3) /hpf Urine WBC 1 (0-4) /hpf Ur Squamous Epith Cells 0 (0-4) /hpf Urine Bacteria None (0) /hpf Hyaline Casts 9 H (0-2) /lph Granular Casts 1 H (0-0) /lph Urine Mucus Few A (None) /hpf Ur Culture Indicated? No POC Troponin I 0.03 (0.00-0.08) 01/06/23 01/06/23 01/06/23 Range/Units 15:06 16:01 16:02 WBC (4.5-11.0) K/mcL RBC (4.63-6.08) M/mcL Hgb (13.7-17.5) g/dL Hct (40.1-51.0) % POC Hct 50.0 (41-55) MCV (80.0-100.0) fL MCH (26.0-34.0) pg MCHC (31.0-36.0) g/dL RDW (11.5-14.5) % Plt Count (140-440) K/mcL MPV (8.8-12.5) fL Immature Gran % (Auto) (0.0-0.5) % Neut % (Auto) (38.0-78.0) % Lymph % (Auto) (15.5-49.0) % [place] % (Auto) (1.0-12.0) % Eos % (Auto) (0.0-7.0) % Baso % (Auto) (0.0-2.0) % Lymph # (Auto) (1.50-4.80) K/mcL [place] # (Auto) (0.10-0.90) K/mcL Eos # (Auto) (0.00-0.70) K/mcL Baso # (Auto) (0.00-0.30) K/mcL Immature Gran # (0.00-0.05) K/mcl Absolute Neutrophils (1.80-8.00) K/mcL POC PT (11.9-14.5) POC INR (0.8-1.2) POC VBG pH 7.16 L* (7.32-7.42) POC VBG pCO2 at Temp 15.1 L* (41-51) POC VBG pO2 44 H (25-40) POC VBG HCO3 5.4 L* (24-28) POC VBG Total CO2 6.0 L (25-29) POC Venous O2 Sat 68.0 (40-70) POC VBG Base Excess -23.0 L (-2-2) VBG Lactic Acid 2.9 H 2.4 H (0.5-2) POC Sodium 132 L (133-145) Sodium (133-145) mmol/L POC Potassium 4.2 (3.3-5.1) Potassium (3.3-5.1) mmol/L POC Chloride 105 (96-108) Chloride (96-108) mmol/L Carbon Dioxide (22-30) mmol/L POC Total CO2 7.0 L* (22-30) Anion Gap (8.0-16.0) POC BUN 25 H (6-20) BUN (6-20) mg/dL Creatinine (0.7-1.2) mg/dL POC Creatinine 1.1 (0.6-1.2) GFR Calculation Glucose (70-105) mg/dL POC Glucose 453 H* (70-105) Calcium (8.6-10.4) mg/dL POC WB Ioniz Calcium 1.07 L (1.16-1.32) Magnesium (1.6-2.5) mg/dL Total Bilirubin (0.1-1.0) mg/dL AST (<40) U/L ALT (<40) U/L Alkaline Phosphatase (39-117) U/L Total Protein (5.9-8.4) gm/dL Albumin (3.2-5.2) gm/dL Globulin (2.2-3.7) gm/dL Albumin/Globulin Ratio (1.0-2.3) Beta-Hydroxybutyrate (<0.27) mmol/L Urine Color Urine Appearance (Clear) Urine pH (5.0-9.0) Ur Specific [place] (1.000-1.035) Urine Protein (Negative) mg/dL Urine Glucose (UA) (Negative) mg/dL Urine Ketones (Negative) mg/dL Urine Occult Blood (Negative) mg/dL Urine Nitrate (Negative) Urine Bilirubin (Negative) mg/dL Urine Urobilinogen mg/dL Ur Leukocyte Esterase (Negative) /uL Urine RBC (0-3) /hpf Urine WBC (0-4) /hpf Ur Squamous Epith Cells (0-4) /hpf Urine Bacteria (0) /hpf Hyaline Casts (0-2) /lph Granular Casts (0-0) /lph Urine Mucus (None) /hpf Ur Culture Indicated? POC Troponin I (0.00-0.08)
[2023-01-06] MEDS ORDERED: ONDANSETRON 4 MG/2 ML VIAL IV PRN (16:35)
[2023-01-06] MEDS ORDERED: ALBUTEROL SULFATE 60 PUFF INHALER INH PRN (16:35)
[2023-01-06] MEDS ORDERED: BISACODYL 10 MG SUPP.RECT PR PRN (16:35)
[2023-01-06] MEDS ORDERED: LACTATED RINGERS 1,000 ML IV SCH (16:35)
[2023-01-06] MEDS ORDERED: hydrOXYzine 25 MG TABLET PO PRN (16:41)
[2023-01-06] MEDS: DILTIAZEM 125 MG in DEXTROSE 5% IN WATER 100 ML IV SCH (16:48)
[2023-01-06] MEDS: INSULIN REGULAR, HUMAN 50 UNIT in 0.9 % SODIUM CHLORIDE 99.5 ML IV SCH (16:56)
[2023-01-06] MEDS ORDERED: SODIUM BICARBONATE VIAL 150 MEQ in DEXTROSE 5% IN WATER 850 ML IV SCH (17:00)
[2023-01-06 17:10] LABS: ALT/SGPT 15 U/L (<40); AST/SGOT 16 U/L (<40); Albumin 3.7 gm/dL (3.2-5.2); Albumin/Globulin Ratio 1.2 (1.0-2.3); Alkaline Phosphatase 126 U/L (39-117); Bilirubin,Total 0.4 mg/dL (0.1-1.0); Blood Urea Nitrogen 27 mg/dL (6-20); Calcium 7.8 mg/dL (8.6-10.4); Carbon Dioxide 4 mmol/L (22-30); Chloride 91 mmol/L (96-108); Estimated Average Glucose(eAG) 298 mg/dL; Globulin 3.1 gm/dL (2.2-3.7); Glomerular Filtration Rate 59; Glucose 557 mg/dL (70-105)
[2023-01-06] MEDS: ACETAMINOPHEN 325 MG TABLET PO PRN (18:31)
[2023-01-06] MEDS: SENNOSIDES 1 TABLET PO PRN (18:31)
[2023-01-06] MEDS: 0.9 % SODIUM CHLORIDE 10 ML SYRINGE IV SCH ×2 (20:00→21:28)
[2023-01-06 21:07] LABS: ALT/SGPT 13 U/L (<40); AST/SGOT 12 U/L (<40); Albumin 3.5 gm/dL (3.2-5.2); Albumin/Globulin Ratio 1.3 (1.0-2.3); Alkaline Phosphatase 106 U/L (39-117); Bilirubin,Total 0.7 mg/dL (0.1-1.0); Blood Urea Nitrogen 22 mg/dL (6-20); Calcium 7.7 mg/dL (8.6-10.4); Carbon Dioxide 14 mmol/L (22-30); Chloride 101 mmol/L (96-108); Globulin 2.8 gm/dL (2.2-3.7); Glomerular Filtration Rate 65; Glucose 265 mg/dL (70-105)
[2023-01-06] MEDS: PREGABALIN 150 MG CAPSULE PO SCH (21:22)
[2023-01-06] MEDS: CYCLOBENZAPRINE 10 MG TABLET PO SCH (21:22)
[2023-01-06] MEDS: FAMOTIDINE/PF 20 MG/2 ML VIAL IV SCH (21:23)
[2023-01-06] MEDS: DEXTROSE 5%-LR 1,000 ML IV SCH (21:35)
[2023-01-06] MEDS: oxyCODONE/APAP 5/325MG TABLET PO PRN (22:33)
[2023-01-06] MEDS ORDERED: oxyCODONE/APAP 5/325MG TABLET PO ONE (22:34)
[2023-01-07 01:17] LABS: ALT/SGPT 12 U/L (<40); AST/SGOT 12 U/L (<40); Albumin 3.4 gm/dL (3.2-5.2); Albumin/Globulin Ratio 1.4 (1.0-2.3); Alkaline Phosphatase 92 U/L (39-117); Bilirubin,Total 0.7 mg/dL (0.1-1.0); Blood Urea Nitrogen 19 mg/dL (6-20); Carbon Dioxide 17 mmol/L (22-30); Chloride 103 mmol/L (96-108); Globulin 2.4 gm/dL (2.2-3.7); Glomerular Filtration Rate 101; Glucose 229 mg/dL (70-105)
[2023-01-07] MEDS: ACETAMINOPHEN 325 MG TABLET PO PRN (04:32)
[2023-01-07] MEDS: 0.9 % SODIUM CHLORIDE 10 ML SYRINGE IV PRN ×2 (04:45→05:10)
[2023-01-07] MEDS: 0.9 % SODIUM CHLORIDE 10 ML SYRINGE IV SCH ×5 (05:15→21:49)
[2023-01-07] MEDS: INSULIN REGULAR, HUMAN 50 UNIT in 0.9 % SODIUM CHLORIDE 99.5 ML IV SCH (05:29)
[2023-01-07 06:41] LABS: Basophils # (Auto) 0.03 K/mcL (0.00-0.30); Basophils % (Auto) 0.2 % (0.0-2.0); Eosinophils # (Auto) 0.03 K/mcL (0.00-0.70); Eosinophils % (Auto) 0.2 % (0.0-7.0); Hematocrit 35.5 % (40.1-51.0); Hemoglobin 12.8 g/dL (13.7-17.5); Lymphocytes # (Auto) 2.43 K/mcL (1.50-4.80); Mean Cell Volume 81.8 fL (80.0-100.0); Mean Corpuscular HGB Conc 36.1 g/dL (31.0-36.0); Mean Platelet Volume 10.9 fL (8.8-12.5); Monocytes # (Auto) 0.99 K/mcL (0.10-0.90); Monocytes % (Auto) 8.2 % (1.0-12.0); Neutrophils % (Auto) 70.8 % (38.0-78.0); Platelet Count 195 K/mcL (140-440); RBC 4.34 M/mcL (4.63-6.08); Red Cell Distribution Width 13.3 % (11.5-14.5); WBC 12.1 K/mcL (4.5-11.0)
[2023-01-07 07:06] LABS: ALT/SGPT 10 U/L (<40); AST/SGOT 12 U/L (<40); Albumin 3.2 gm/dL (3.2-5.2); Albumin/Globulin Ratio 1.5 (1.0-2.3); Alkaline Phosphatase 91 U/L (39-117); Bilirubin,Total 0.8 mg/dL (0.1-1.0); Blood Urea Nitrogen 16 mg/dL (6-20); Calcium 7.7 mg/dL (8.6-10.4); Carbon Dioxide 22 mmol/L (22-30); Chloride 104 mmol/L (96-108); Globulin 2.2 gm/dL (2.2-3.7); Glomerular Filtration Rate 106; Glucose 165 mg/dL (70-105)
[2023-01-07] MEDS ORDERED: LEVOTHYROXINE 100 MCG TABLET PO SCH (07:30)
[2023-01-07] MEDS: DEXTROSE 5%-LR 1,000 ML IV SCH (07:44)
[2023-01-07] MEDS: LEVOTHYROXINE 100 MCG TABLET PO SCH (07:54)
[2023-01-07] MEDS: RIMEGEPANT 75 MG PO SCH (08:31)
[2023-01-07] MEDS: FLUTICASONE PROPIONATE SPRAY.NAS NS SCH (09:00)
[2023-01-07] MEDS: DEXTROAMPHETAMINE AMPHETAMINE 20 MG PO SCH (09:01)
[2023-01-07] MEDS: FAMOTIDINE/PF 20 MG/2 ML VIAL IV SCH ×2 (09:06→21:49)
[2023-01-07] MEDS: PREGABALIN 150 MG CAPSULE PO SCH ×2 (09:06→21:48)
[2023-01-07] MEDS ORDERED: DEXTROSE 31 GM ORAL.SUSP PO PRN (10:19)
[2023-01-07] MEDS ORDERED: DEXTROSE 50% 50 ML VIAL IV PRN (10:19)
[2023-01-07] MEDS ORDERED: INSULIN GLARGINE, HUMAN 1 UNIT/0.01 ML SQ SCH (10:20)
--- NOTE | 2023-01-07 10:36 | Internal Med Progress Note ---
SUBJECTIVE Subjective Patient information: Note initiated : 01/07/23 at 10:19 am Service Date, if different from initiated Date: [] Patient: Bo Kee 47 y/o M admitted on 01/06/23 for DKA. Chief Complaint: [] Additional PMFSH (Level 3 Only): History of Present Illness 47-year-old male with history of poorly controlled diabetes mellitus 1, noncompliance with medication, hypertension, hypothyroidism, anxiety, PTSD, ADHD, GERD presented with nausea, vomiting, generalized weakness, palpitations for the past 5 to 7 days. Patient is on insulin pump but this stopped working around 7 days ago. Since then he has been guessing insulin dose and giving himself insulin intermittently without following any protocol and has not annika cked his blood glucose for the past 1 week. He gave himself insulin yesterday but does not know how much. Apparently he called customer support for his insulin pump but was unable to take care of that. His significant other reported that patient is also somewhat confused. On evaluation patient was tachycardic with heart rate ranging from 116-140s, tachypneic with respiratory rate 28-43. Blood pressure was slightly elevated. EKG showed atrial flutter, with heart rate 145 bpm. Troponin obtained was negative. Patient did not have any chest pain., Labs showed leukocytosis of 24,000, hemoglobin 16.3, VBG with pH 7.01, bicarb 4.1 bicarbonate is 4.1. Lactic acid is 4.6. Potassium 6.2. Glucose of 699. Creatinine is within normal limits. Potassium is 6.2, corrected sodium is 138. Chest x-ray showed no acute finding. UA unremarkable. No apparent source of infection. Patient will be admitted to ICU for severe diabetic ketoacidosis, metabolic encephalopathy atrial flutter, hyperkalemia on IV insulin DKA protocol. 01/07. Patient seen and examined. Overnight patient converted into sinus rhythm and diltiazem drip was discontinued. Leukocytosis is down to 12,000. Patient metabolic acidosis is resolved, anion gap is now normal and bicarb drip is discontinued. Potassium is 3.2 and will be replaced. He is still on IV insulin, blood glucose has improved to 165, he will be transition to subcutaneous along acting insulin sliding scale since patient insulin pump is not functioning. Per patient the insulin pump settings are 2.2 units/h of NovoLog and then it adjusts according to his mealtime carb intake however he does not know how much. Review of system Patient reports feeling better, no vomiting, some nausea which is again settling He is more oriented, no focal deficits, no headache Patient reports no chest pain, no palpitation no diaphoresis Excessive thirst reported, polyuria No muscle pain No skin lesions Physical examination Alert,appears significantly improved, no acute distress Normocephalic, atraumatic Oral mucosa is less dry S1 and S2, regular rate and rhythm, no murmurs heard Abdomen soft and nontender Alert, no focal deficits Mood appears stable Skin with no erythema, turgor is improving Assessment and plan Severe diabetic ketoacidosis, beta-hydroxybutyrate 9.65, lactic acid 4.6, PH 7.01, bicarb 4.1 on VBG, chem with CO2 of 4, AG 31 Anion gap acidosis Admitted to ICU on IV insulin per DKA protocol Status post bicarb drip, acidosis resolved. DC bicarb drip Blood glucose within 200 range, transition to subcutaneous Lantus 10 units d aily, and insulin sliding scale with 1 to 2 hours overlap with IV insulin. Advance diet to [facility] Replace potassium Monitor electrolytes and renal function Diabetes mellitus 2 with hyperglycemia of 699 Patient with noncompliance with insulin. Insulin pump stopped working 7 days ago. HbA1c 12. See above Acute kidney injury Creatinine 1.6 on admission improved to 0.8 with IV hydration. Noncompliance with medical therapy Counseled on compliance Hyperkalemia Expected to improve with insulin and fluids will monitor Metabolic encephalopathy Secondary to DKA and severe acidosis. Atrial flutter with RVR Likely in the setting of acute illness and hyper kalemia and electrolyte imbalance. Patient converted to sinus rhythm diltiazem gtt. was discontinued. Patient [id number] 2 score is 1 only. Troponin negative Echo pending Significant leukocytosis UA and chest x-ray negative. Patient received 1 dose of Zosyn. Leukocytosis resolving Hyponatremia Pseudohyponatremia in the setting of hyperglycemia. Hypertension Initially blood pressure was elevated, currently within normal range. As needed hydralazine. Hypothyroidism Obtain TSH, continue with levothyroxine 200 mcg daily home dose Asthma Continue fluticasone nasal spray and as needed albuterol Anxiety, PTSD, ADHD Continue home dose Adderall, hydroxyzine GERD Continue famotidine IV twice daily DVT prophylaxis SCDs CODE STATUS Full code Critical care 40 minutes Constitutional Vitals: Vital Signs Temp Pulse Resp BP Pulse Ox O2 Del Method 99.2 F H 83 16 126/74 98 Room Air 01/07/23 08:01 01/07/23 10:01 01/07/23 10:01 01/07/23 10:01 01/07/23 10:01 01/07/23 10:01 Period Temp Pulse Resp BP Sys/Velásquez Pulse Ox O2 Del Method O2 Flow Rate Last 24 Hr 97.3 F-99.6 F 63-159 14-43 99-178/51-131 96-100 Room Air-Room Air Intake and Output 01/06/23 01/07/23 01/07/23 19:59 03:59 11:59 Intake Total 2318 1058 2476 Output Total 775 550 0 Balance 3799 721 0582 Weight 118.478 kg Intake & Output: Intake & Output 01/06/23 01/07/23 01/07/23 19:59 03:59 11:59 Intake Total 2318 1058 2476 Output Total 775 550 0 Balance 5656 000 6783 Weight 118.478 kg Intake: IV 2218 798 1276 Sodium Chloride 0.9% 1,000 ml @ 2000 Wide Open IV [facility] Rx#: [id number] Dextrose 5%-Lactated Ringers 1, 1000 000 ml @ 110 mls/hr IV .Q9H6M [facility] Rx#:[id number] HumuLIN R 50 UNIT In Sodium 134 27 61 Chloride 0.9% 99.5 ml @ 10 UNIT /HR 20 mls/hr IV DUR [facility] Rx#: [id number] Lactated Ringers 1,000 ml @ 120 542 mls/hr IV .Q8H20M [facility] Rx#: [id number] Zosyn 4.5 gm In Dextrose 5% in 50 Water 50 ml @ 100 mls/hr IV ONCE ONE Rx#:[id number] Sodium Bicarbonate Vial 150 Meq 34 229 215 In Dextrose 5% in Water 850 ml @ 50 mls/hr IV Q20H [facility] Rx#: [id number] Oral 058 621 1173 Output: Void Amount 775 550 0 Other: Urine Appearance Clear Urine Color Yellow Urine Odor Strong OBJ DATA Labs 01/07/23 05:13 01/07/23 05:13 Labs: Abnormal Lab Results 01/07/23 01/07/23 01/07/23 08:26 05:13 05:13 WBC 12.1 H RBC 4.34 L Hgb 12.8 L Hct 35.5 L MCHC 36.1 H RDW Immature Gran % (Auto) 0.6 H Neut % (Auto) Lymph % (Auto) Lymph # (Auto) [place] # (Auto) 0.99 H Immature Gran # 0.07 H Absolute Neutrophils 8.58 H POC PT POC INR POC pH POC pCO2 31.3 L POC pO2 77 L POC HCO3 21.3 L POC ABG Base Excess -3.0 L POC VBG pH POC VBG pCO2 at Temp POC VBG pO2 POC VBG HCO3 POC VBG Total CO2 POC Venous O2 Sat POC VBG Base Excess VBG Lactic Acid Hgb O2 Saturation POC Sodium Sodium POC Potassium Potassium 3.2 L Chloride Carbon Dioxide POC Total CO2 22.0 L Anion Gap POC BUN BUN Creatinine Glucose 165 H POC Glucose Hemoglobin A1c Calcium 7.7 L POC WB Ioniz Calcium Alkaline Phosphatase Total Protein 5.4 L Beta-Hydroxybutyrate Urine Protein Urine Glucose (UA) Urine Ketones Hyaline Casts Granular Casts Urine Mucus 01/07/23 01/07/23 01/07/23 04:28 00:34 00:03 WBC RBC Hgb Hct MCHC RDW Immature Gran % (Auto) Neut % (Auto) Lymph % (Auto) Lymph # (Auto) [place] # (Auto) Immature Gran # Absolute Neutrophils POC PT POC INR POC pH 7.59 H POC pCO2 20.8 L* 30.3 L POC pO2 130 H 77 L POC HCO3 20.0 L 19.7 L POC ABG Base Excess -5.0 L POC VBG pH POC VBG pCO2 at Temp POC VBG pO2 POC VBG HCO3 POC VBG Total CO2 POC Venous O2 Sat POC VBG Base Excess VBG Lactic Acid Hgb O2 Saturation 99.0 H POC Sodium Sodium POC Potassium Potassium Chloride Carbon Dioxide 17 L POC Total CO2 21.0 L 21.0 L Anion Gap POC BUN BUN Creatinine Glucose 229 H POC Glucose Hemoglobin A1c Calcium 8.0 L POC WB Ioniz Calcium Alkaline Phosphatase Total Protein 5.8 L Beta-Hydroxybutyrate Urine Protein Urine Glucose (UA) Urine Ketones Hyaline Casts Granular Casts Urine Mucus 01/06/23 01/06/23 01/06/23 20:05 19:54 16:02 WBC RBC Hgb Hct MCHC RDW Immature Gran % (Auto) Neut % (Auto) Lymph % (Auto) Lymph # (Auto) [place] # (Auto) Immature Gran # Absolute Neutrophils POC PT POC INR POC pH POC pCO2 23.8 L* POC pO2 POC HCO3 13.6 L POC ABG Base Excess -12.0 L POC VBG pH 7.16 L* POC VBG pCO2 at Temp 15.1 L* POC VBG pO2 44 H POC VBG HCO3 5.4 L* POC VBG Total CO2 6.0 L POC Venous O2 Sat POC VBG Base Excess -23.0 L VBG Lactic Acid 2.4 H Hgb O2 Saturation POC Sodium Sodium 132 L POC Potassium Potassium Chloride Carbon Dioxide 14 L POC Total CO2 14.0 L Anion Gap 17.0 H POC BUN BUN 22 H Creatinine 1.3 H Glucose 265 H POC Glucose Hemoglobin A1c Calcium 7.7 L POC WB Ioniz Calcium Alkaline Phosphatase Total Protein Beta-Hydroxybutyrate Urine Protein Urine Glucose (UA) Urine Ketones Hyaline Casts Granular Casts Urine Mucus 01/06/23 01/06/23 01/06/23 16:01 15:06 15:06 WBC RBC Hgb Hct MCHC RDW Immature Gran % (Auto) Neut % (Auto) Lymph % (Auto) Lymph # (Auto) [place] # (Auto) Immature Gran # Absolute Neutrophils POC PT POC INR POC pH POC pCO2 POC pO2 POC HCO3 POC ABG Base Excess POC VBG pH POC VBG pCO2 at Temp POC VBG pO2 POC VBG HCO3 POC VBG Total CO2 POC Venous O2 Sat POC VBG Base Excess VBG Lactic Acid 2.9 H Hgb O2 Saturation POC Sodium 132 L Sodium 126 L POC Potassium Potassium Chloride 91 L Carbon Dioxide 4 L* POC Total CO2 7.0 L* Anion Gap 31.0 H POC BUN 25 H BUN 27 H Creatinine 1.4 H Glucose 557 H* POC Glucose 453 H* Hemoglobin A1c 12.0 H Calcium 7.8 L POC WB Ioniz Calcium 1.07 L Alkaline Phosphatase 126 H Total Protein Beta-Hydroxybutyrate Urine Protein Urine Glucose (UA) Urine Ketones Hyaline Casts Granular Casts Urine Mucus 01/06/23 01/06/23 01/06/23 14:25 12:55 11:12 WBC RBC Hgb Hct MCHC RDW Immature Gran % (Auto) Neut % (Auto) Lymph % (Auto) Lymph # (Auto) [place] # (Auto) Immature Gran # Absolute Neutrophils POC PT 17.7 H POC INR 1.5 H POC pH POC pCO2 POC pO2 POC HCO3 POC ABG Base Excess POC VBG pH POC VBG pCO2 at Temp POC VBG pO2 POC VBG HCO3 POC VBG Total CO2 POC Venous O2 Sat POC VBG Base Excess VBG Lactic Acid Hgb O2 Saturation POC Sodium 129 L Sodium POC Potassium 6.2 H* Potassium Chloride Carbon Dioxide POC Total CO2 6.0 L* Anion Gap POC BUN 26 H BUN Creatinine Glucose POC Glucose 668 H* Hemoglobin A1c Calcium POC WB Ioniz Calcium 1.07 L Alkaline Phosphatase Total Protein Beta-Hydroxybutyrate Urine Protein 30 A Urine Glucose (UA) >=500 A Urine Ketones 80 A Hyaline Casts 9 H Granular Casts 1 H Urine Mucus Few A 01/06/23 01/06/23 01/06/23 11:09 11:03 11:03 WBC RBC Hgb Hct MCHC RDW Immature Gran % (Auto) Neut % (Auto) Lymph % (Auto) Lymph # (Auto) [place] # (Auto) Immature Gran # Absolute Neutrophils POC PT POC INR POC pH POC pCO2 POC pO2 POC HCO3 POC ABG Base Excess POC VBG pH 7.01 L* POC VBG pCO2 at Temp 16.4 L* POC VBG pO2 57 H POC VBG HCO3 4.1 L* POC VBG Total CO2 < 5.0 L POC Venous O2 Sat 74.0 H POC VBG Base Excess -27.0 L VBG Lactic Acid 4.6 H* Hgb O2 Saturation POC Sodium Sodium 125 L POC Potassium Potassium 7.1 H* Chloride 90 L Carbon Dioxide 4 L* POC Total CO2 Anion Gap 31.0 H POC BUN BUN 26 H Creatinine 1.6 H Glucose 699 H* POC Glucose Hemoglobin A1c Calcium POC WB Ioniz Calcium Alkaline Phosphatase 145 H Total Protein Beta-Hydroxybutyrate 9.65 H Urine Protein Urine Glucose (UA) Urine Ketones Hyaline Casts Granular Casts Urine Mucus 01/06/23 11:03 WBC 24.3 H RBC Hgb Hct 51.2 H MCHC RDW 14.8 H Immature Gran % (Auto) 0.8 H Neut % (Auto) 92.4 H Lymph % (Auto) 2.6 L Lymph # (Auto) 0.63 L [place] # (Auto) 0.96 H Immature Gran # 0.19 H Absolute Neutrophils 22.46 H POC PT POC INR POC pH POC pCO2 POC pO2 POC HCO3 POC ABG Base Excess POC VBG pH POC VBG pCO2 at Temp POC VBG pO2 POC VBG HCO3 POC VBG Total CO2 POC Venous O2 Sat POC VBG Base Excess VBG Lactic Acid Hgb O2 Saturation POC Sodium Sodium POC Potassium Potassium Chloride Carbon Dioxide POC Total CO2 Anion Gap POC BUN BUN Creatinine Glucose POC Glucose Hemoglobin A1c Calcium POC WB Ioniz Calcium Alkaline Phosphatase Total Protein Beta-Hydroxybutyrate Urine Protein Urine Glucose (UA) Urine Ketones Hyaline Casts Granular Casts Urine Mucus Meds: Medications Acetaminophen (Acetaminophen 325 Mg Tablet) 650 mg PO Q4-6HP PRN; Protocol PRN Reason: Per Pain Protocol/Fever > 101 Last Admin: 01/07/23 04:32 Dose: 650 mg Albuterol Sulfate (Albuterol Sulfate 60 Puff Inhaler) 2 puff INH Q4HP PRN PRN Reason: Shortness Of Breath Bisacodyl (Bisacodyl 10 Mg Supp.Rect) 10 mg OK Q2-3DAYS PRN PRN Reason: Constipation Cyclobenzaprine HCl (Cyclobenzaprine 10 Mg Tablet) 10 mg PO QPM [facility] Last Admin: 01/06/23 21:22 Dose: 10 mg Diagnostic Test (Pha) (Accu-Chek 1 Each Strip) 1 each FS Q1 [facility] Last Admin: 01/07/23 09:22 Dose: 1 each Ergocalciferol (Ergocalciferol (Vitamin D2) 50,000 Unit Capsule) 50,000 unit PO QWEEK [facility] Famotidine (Famotidine/Pf 20 Mg/2 Ml Vial) 20 mg IV Q12 [facility] Last Admin: 01/07/23 09:06 Dose: 20 mg Fluticasone Propionate (Fluticasone Propionate [place].Demetris) 1 spray NS QDAY [facility] Last Admin: 01/07/23 09:00 Dose: Not Given Hydroxyzine HCl (Hydroxyzine 25 Mg Tablet) 50 mg PO Q4-6HP PRN PRN Reason: anxiety Diltiazem HCl 125 mg/ Dextrose 125 mls @ 5 mls/hr IV Q24H [facility]; Protocol Last Admin: 01/06/23 16:48 Dose: 5 mg/hr, 5 mls/hr Insulin Human Regular 50 unit/ (Sodium Chloride) 100 mls @ 20 mls/hr IV DUR [facility]; Protocol Last Titration: 01/07/23 09:22 Dose: 1 unit/hr, 2 mls/hr Dextrose/Lactated Ringer's (Dextrose 5%-Lactated Ringers) 1,000 mls @ 110 mls/hr IV .Q9H6M [facility] Last Admin: 01/07/23 07:44 Dose: 110 mls/hr Insulin Glargine (Insulin Glargine, Human 1 Unit/0.01 Ml) 10 unit SQ DAILY [facility] Levothyroxine Sodium (Levothyroxine 100 Mcg Tablet) 175 mcg PO ACB [facility] Last Admin: 01/07/23 07:54 Dose: 175 mcg Ondansetron HCl (Ondansetron 4 Mg/2 Ml Vial) 4 mg IV Q4-6HP PRN; Protocol PRN Reason: Nausea And Vomiting Last Admin: 01/06/23 19:16 Dose: 4 mg Oxycodone/Acetaminophen (Oxycodone/Apap 5/325mg Tablet) 1 tab PO Q6HP PRN; Protocol PRN Reason: Per Pain Protocol Last Admin: 01/06/23 22:33 Dose: 1 tab Rimegepant [Nurtec Odt] 75 Mg Tablet, Disintegrating 1 dose PO QDAY [facility] Last Admin: 01/07/23 08:31 Dose: Not Given Dextroamphetamine- Amphetamine [ Adderall Xr] 20 Mg Tab 1 dose PO DAILY [facility] Last Admin: 01/07/23 09:01 Dose: Not Given Pregabalin (Pregabalin 150 Mg Capsule) 300 mg PO BID [facility] Last Admin: 01/07/23 09:06 Dose: 300 mg Senna (Sennosides 1 Tablet) 1 tab PO HSP PRN PRN Reason: Constipation Last Admin: 01/06/23 18:31 Dose: 1 tab Sodium Chloride (0.9 % Sodium Chloride 10 Ml Syringe) 10 ml IV Q8 [facility] Last Admin: 01/07/23 05:15 Dose: 10 ml Sodium Chloride (0.9 % Sodium Chloride 10 Ml Syringe) 10 ml IV Q12 [facility] Last Admin: 01/07/23 09:07 Dose: 10 ml Sodium Chloride (0.9 % Sodium Chloride 10 Ml Syringe) 10 ml IV UD PRN PRN Reason: FLUSH Last Admin: 01/07/23 05:10 Dose: 10 ml A/P Time Spent With Patient Time: Total time spent is greater than 50% in coordination of care (as documented) at patient's floor/unit and/or counseling patient: QUALITY VTE Deep Vein Thrombosis/Pulmonary Embolism Present on Admission: No
[2023-01-07] MEDS ORDERED: POTASSIUM CHLORIDE 20 MEQ TABLET PO ONE (10:57)
[2023-01-07] MEDS ORDERED: INSULIN LISPRO 1 UNIT/0.01 ML UNIT SQ SCH (11:30)
[2023-01-07] MEDS: DILTIAZEM 125 MG in DEXTROSE 5% IN WATER 100 ML IV SCH ×3 (13:58→14:07)
[2023-01-07] MEDS: METOPROLOL TARTRATE 25 MG TABLET PO SCH ×2 (15:32→21:49)
[2023-01-07] MEDS: INSULIN LISPRO 1 UNIT/0.01 ML UNIT SQ SCH ×2 (16:52→21:48)
[2023-01-07] MEDS: SENNOSIDES 1 TABLET PO PRN (21:48)
[2023-01-07] MEDS: CYCLOBENZAPRINE 10 MG TABLET PO SCH (21:48)
[2023-01-07] MEDS: oxyCODONE/APAP 5/325MG TABLET PO PRN (23:45)
[2023-01-08] MEDS: 0.9 % SODIUM CHLORIDE 10 ML SYRINGE IV PRN (05:15)
[2023-01-08] MEDS: 0.9 % SODIUM CHLORIDE 10 ML SYRINGE IV SCH ×6 (05:18→22:46)
[2023-01-08 06:32] LABS: Basophils # (Auto) 0.07 K/mcL (0.00-0.30); Basophils % (Auto) 1.1 % (0.0-2.0); Eosinophils % (Auto) 1.6 % (0.0-7.0); Hematocrit 35.2 % (40.1-51.0); Hemoglobin 12.7 g/dL (13.7-17.5); Lymphocytes % (Auto) 32.8 % (15.5-49.0); Mean Cell Volume 82.1 fL (80.0-100.0); Mean Corpuscular HGB Conc 36.1 g/dL (31.0-36.0); Mean Platelet Volume 10.6 fL (8.8-12.5); Monocytes % (Auto) 9.4 % (1.0-12.0); Neutrophils % (Auto) 54.8 % (38.0-78.0); Platelet Count 162 K/mcL (140-440); RBC 4.29 M/mcL (4.63-6.08); Red Cell Distribution Width 13.6 % (11.5-14.5); WBC 6.4 K/mcL (4.5-11.0)
[2023-01-08 06:48] LABS: ALT/SGPT 11 U/L (<40); AST/SGOT 13 U/L (<40); Albumin/Globulin Ratio 1.4 (1.0-2.3); Alkaline Phosphatase 85 U/L (39-117); Bilirubin,Total 0.5 mg/dL (0.1-1.0); Blood Urea Nitrogen 11 mg/dL (6-20); Calcium 7.7 mg/dL (8.6-10.4); Carbon Dioxide 21 mmol/L (22-30); Chloride 103 mmol/L (96-108); Globulin 2.2 gm/dL (2.2-3.7); Glomerular Filtration Rate 112; Glucose 260 mg/dL (70-105)
[2023-01-08] MEDS: INSULIN LISPRO 1 UNIT/0.01 ML UNIT SQ SCH ×8 (07:45→20:47)
[2023-01-08] MEDS: PREGABALIN 150 MG CAPSULE PO SCH ×2 (08:11→20:46)
[2023-01-08] MEDS: METOPROLOL TARTRATE 25 MG TABLET PO SCH ×2 (08:12→20:46)
[2023-01-08] MEDS: LEVOTHYROXINE 100 MCG TABLET PO SCH (08:12)
[2023-01-08] MEDS: FAMOTIDINE/PF 20 MG/2 ML VIAL IV SCH ×2 (08:12→20:46)
[2023-01-08] MEDS: RIMEGEPANT 75 MG PO SCH (08:14)
[2023-01-08] MEDS: FLUTICASONE PROPIONATE SPRAY.NAS NS SCH (08:14)
[2023-01-08] MEDS: DEXTROAMPHETAMINE AMPHETAMINE 20 MG PO SCH (08:14)
[2023-01-08] MEDS: INSULIN GLARGINE, HUMAN 1 UNIT/0.01 ML SQ SCH (09:14)
[2023-01-08] MEDS ORDERED: INSULIN LISPRO 1 UNIT/0.01 ML UNIT SQ SCH ×2 (13:15→17:45)
[2023-01-08] MEDS ORDERED: INSULIN LISPRO 1 UNIT/0.01 ML UNIT SQ ONE ×4 (13:23→16:45)
[2023-01-08] MEDS: NICOTINE 14 MG PATCH TOPICAL SCH (13:59)
--- NOTE | 2023-01-08 14:29 | Internal Med Progress Note ---
SUBJECTIVE Subjective Patient information: Note initiated : 01/08/23 at 2:27 pm Service Date, if different from initiated Date: [] Patient: Bo Kee 47 y/o M admitted on 01/06/23 for DKA. Chief Complaint: [] Additional PMFSH (Level 3 Only): History of Present Illness 47-year-old male with history of poorly controlled diabetes mellitus 1, noncompliance with medication, hypertension, hypothyroidism, anxiety, PTSD, ADHD, GERD presented with nausea, vomiting, generalized weakness, palpitations for the past 5 to 7 days. Patient is on insulin pump but this stopped working around 7 days ago. Since then he has been guessing insulin dose and giving himself insulin intermittently without following any protocol and has not chec ked his blood glucose for the past 1 week. He gave himself insulin yesterday but does not know how much. Apparently he called customer support for his insulin pump but was unable to take care of that. His significant other reported that patient is also somewhat confused. On evaluation patient was tachycardic with heart rate ranging from 116-140s, tachypneic with respiratory rate 28-43. Blood pressure was slightly elevated. EKG showed atrial flutter, with heart rate 145 bpm. Troponin obtained was negative. Patient did not have any chest pain., Labs showed leukocytosis of 24,000, hemoglobin 16.3, VBG with pH 7.01, bicarb 4.1 bicarbonate is 4.1. Lactic acid is 4.6. Potassium 6.2. Glucose of 699. Creatinine is within normal limits. Potassium is 6.2, corrected sodium is 138. Chest x-ray showed no acute finding. UA unremarkable. No apparent source of infection. Patient will be admitted to ICU for severe diabetic ketoacidosis, metabolic encephalopathy atrial flutter, hyperkalemia on IV insulin DKA protocol. 01/07. Patient seen and examined. Overnight patient converted into sinus rhythm and diltiazem drip was discontinued. Leukocytosis is down to 12,000. Patient metabolic acidosis is resolved, anion gap is now normal and bicarb drip is discontinued. Potassium is 3.2 and will be replaced. He is still on IV insulin, blood glucose has improved to 165, he will be transition to subcutaneous along acting insulin sliding scale since patient insulin pump is not functioning. Per patient the insulin pump settings are 2.2 units/h of NovoLog and then it adjusts according to his mealtime carb intake however he does not know how much. 01/08 he is off IV insulin however blood glucose is elevated around 300 this morning, will start him on scheduled mealtime insulin and continue with sliding scale and basal insulin. WBC normalized. Sodium 134, potassium is within normal range now 3.6 after repletion. Review of system Patient reports no fever or chills He is more oriented, no focal deficits, no headache Patient reports no chest pain, no palpitation no diaphoresis Excessive thirst reported, polyuria No muscle pain No skin lesions Physical examination Alert,appears significantly improved, no acute distress Normocephalic, atraumatic Oral mucosa is moist S1 and S2, regular rate and rhythm, no murmurs heard Abdomen soft and nontender Alert, no focal deficits Mood appears stable Skin with no erythema, normal skin turgor Assessment and plan Severe diabetic ketoacidosis, beta-hydroxybutyrate 9.65, lactic acid 4.6, PH 7.01, bicarb 4.1 on VBG, chem with CO2 of 4, AG 31 Anion gap acidosis Status post DKA protocol, status post bicarb drip DKA resolved Still hyperglycemia ranging in the 300s. Start mealtime insulin at 9 units and titrate as needed. Increase Lantus to 10 units daily,. Continue sliding scale. CCH O diet Diabetes mellitus 2 with hyperglycemia of 699 Patient with noncompliance with insulin. Insulin pump stopped working 7 days ag o. HbA1c 12. See above Acute kidney injury Creatinine 1.6 on admission improved to 0.8 with IV hydration. Noncompliance with medical therapy Counseled on compliance Hyperkalemia Resolved Metabolic encephalopathy Secondary to DKA and severe acidosis. Now resolved Atrial flutter with RVR Likely in the setting of acute illness and hyperkalemia and electrolyte imbalance. Patient converted to sinus rhythm diltiazem gtt. was discontinued. Patient [id number] 2 score is 1 only. Troponin negative 2D echocardiogram with EF 70-75%, left ventricle and right ventricle systolic function normal, regional wall motion abnormality cannot be excluded due to limited visualization, no significant valvular dysfunction. Significant leukocytosis UA and chest x-ray negative. Patient received 1 dose of Zosyn. Leukocytosis resolving Hyponatremia Resolving Hypertension Initially blood pressure was elevated, currently within normal range. As needed hydralazine. Hypothyroidism On levothyroxine 200 mcg daily home dose Asthma Continue fluticasone nasal spray and as needed albuterol Anxiety, PTSD, ADHD Continue home dose Adderall, hydroxyzine GERD Continue famotidine IV twice daily DVT prophylaxis SCDs CODE STATUS Full code Total time 50 minutes Constitutional Vitals: Vital Signs Temp Pulse Resp BP Pulse Ox O2 Del Method 97.2 F 94 H 17 116/82 95 Room Air 01/08/23 13:01 01/08/23 13:01 01/08/23 13:01 01/08/23 13:01 01/08/23 13:01 01/08/23 06:00 Period Temp Pulse Resp BP Sys/Velásquez Pulse Ox O2 Del Method O2 Flow Rate Last 24 Hr 97.0 F-98.4 F 56-96 11-19 97-140/67-116 94-100 Room Air-Room Air Intake and Output 01/08/23 01/08/23 01/08/23 03:59 11:59 19:59 Intake Total 240 600 480 Output Total 1625 1250 700 Balance -1385 -650 -220 Weight 119.295 kg Intake & Output: Intake & Output 01/08/23 01/08/23 01/08/23 03:59 11:59 19:59 Intake Total 240 600 480 Output Total 1625 1250 700 Balance -1385 -650 -220 Weight 119.295 kg Intake: Oral 240 600 480 Output: Void Amount 1625 1250 700 Other: Meal 2 peanut butter, 3 allison crackers Breakfast Lunch Percent of Meal Consumed 100% 100% 100% Feeding Ability Independent Independent Independent Urine Appearance Clear Clear Urine Color Yellow Yellow Yellow Urine Odor Normal OBJ DATA Labs 01/08/23 05:17 01/08/23 05:17 Labs: Abnormal Lab Results 01/08/23 01/08/23 01/07/23 05:17 05:17 08:26 WBC RBC 4.29 L Hgb 12.7 L Hct 35.2 L MCHC 36.1 H RDW Immature Gran % (Auto) Neut % (Auto) Lymph % (Auto) Lymph # (Auto) Archer # (Auto) Immature Gran # Absolute Neutrophils POC PT POC INR POC pH POC pCO2 31.3 L POC pO2 77 L POC HCO3 21.3 L POC ABG Base Excess -3.0 L POC VBG pH POC VBG pCO2 at Temp POC VBG pO2 POC VBG HCO3 POC VBG Total CO2 POC Venous O2 Sat POC VBG Base Excess VBG Lactic Acid Hgb O2 Saturation POC Sodium Sodium POC Potassium Potassium Chloride Carbon Dioxide 21 L POC Total CO2 22.0 L Anion Gap POC BUN BUN Creatinine Glucose 260 H POC Glucose Hemoglobin A1c Calcium 7.7 L POC WB Ioniz Calcium Alkaline Phosphatase Total Protein 5.2 L Albumin 3.0 L Beta-Hydroxybutyrate Urine Protein Urine Glucose (UA) Urine Ketones Hyaline Casts Granular Casts Urine Mucus 01/07/23 01/07/23 01/07/23 05:13 05:13 04:28 WBC 12.1 H RBC 4.34 L Hgb 12.8 L Hct 35.5 L MCHC 36.1 H RDW Immature Gran % (Auto) 0.6 H Neut % (Auto) Lymph % (Auto) Lymph # (Auto) Archer # (Auto) 0.99 H Immature Gran # 0.07 H Absolute Neutrophils 8.58 H POC PT POC INR POC pH 7.59 H POC pCO2 20.8 L* POC pO2 130 H POC HCO3 20.0 L POC ABG Base Excess POC VBG pH POC VBG pCO2 at Temp POC VBG pO2 POC VBG HCO3 POC VBG Total CO2 POC Venous O2 Sat POC VBG Base Excess VBG Lactic Acid Hgb O2 Saturation 99.0 H POC Sodium Sodium POC Potassium Potassium 3.2 L Chloride Carbon Dioxide POC Total CO2 21.0 L Anion Gap POC BUN BUN Creatinine Glucose 165 H POC Glucose Hemoglobin A1c Calcium 7.7 L POC WB Ioniz Calcium Alkaline Phosphatase Total Protein 5.4 L Albumin Beta-Hydroxybutyrate Urine Protein Urine Glucose (UA) Urine Ketones Hyaline Casts Granular Casts Urine Mucus 01/07/23 01/07/23 01/06/23 00:34 00:03 20:05 WBC RBC Hgb Hct MCHC RDW Immature Gran % (Auto) Neut % (Auto) Lymph % (Auto) Lymph # (Auto) Archer # (Auto) Immature Gran # Absolute Neutrophils POC PT POC INR POC pH POC pCO2 30.3 L 23.8 L* POC pO2 77 L POC HCO3 19.7 L 13.6 L POC ABG Base Excess -5.0 L -12.0 L POC VBG pH POC VBG pCO2 at Temp POC VBG pO2 POC VBG HCO3 POC VBG Total CO2 POC Venous O2 Sat POC VBG Base Excess VBG Lactic Acid Hgb O2 Saturation POC Sodium Sodium POC Potassium Potassium Chloride Carbon Dioxide 17 L POC Total CO2 21.0 L 14.0 L Anion Gap POC BUN BUN Creatinine Glucose 229 H POC Glucose Hemoglobin A1c Calcium 8.0 L POC WB Ioniz Calcium Alkaline Phosphatase Total Protein 5.8 L Albumin Beta-Hydroxybutyrate Urine Protein Urine Glucose (UA) Urine Ketones Hyaline Casts Granular Casts Urine Mucus 01/06/23 01/06/23 01/06/23 19:54 16:02 16:01 WBC RBC Hgb Hct MCHC RDW Immature Gran % (Auto) Neut % (Auto) Lymph % (Auto) Lymph # (Auto) Archer # (Auto) Immature Gran # Absolute Neutrophils POC PT POC INR POC pH POC pCO2 POC pO2 POC HCO3 POC ABG Base Excess POC VBG pH 7.16 L* POC VBG pCO2 at Temp 15.1 L* POC VBG pO2 44 H POC VBG HCO3 5.4 L* POC VBG Total CO2 6.0 L POC Venous O2 Sat POC VBG Base Excess -23.0 L VBG Lactic Acid 2.4 H Hgb O2 Saturation POC Sodium 132 L Sodium 132 L POC Potassium Potassium Chloride Carbon Dioxide 14 L POC Total CO2 7.0 L* Anion Gap 17.0 H POC BUN 25 H BUN 22 H Creatinine 1.3 H Glucose 265 H POC Glucose 453 H* Hemoglobin A1c Calcium 7.7 L POC WB Ioniz Calcium 1.07 L Alkaline Phosphatase Total Protein Albumin Beta-Hydroxybutyrate Urine Protein Urine Glucose (UA) Urine Ketones Hyaline Casts Granular Casts Urine Mucus 01/06/23 01/06/23 01/06/23 15:06 15:06 14:25 WBC RBC Hgb Hct MCHC RDW Immature Gran % (Auto) Neut % (Auto) Lymph % (Auto) Lymph # (Auto) Archer # (Auto) Immature Gran # Absolute Neutrophils POC PT 17.7 H POC INR 1.5 H POC pH POC pCO2 POC pO2 POC HCO3 POC ABG Base Excess POC VBG pH POC VBG pCO2 at Temp POC VBG pO2 POC VBG HCO3 POC VBG Total CO2 POC Venous O2 Sat POC VBG Base Excess VBG Lactic Acid 2.9 H Hgb O2 Saturation POC Sodium Sodium 126 L POC Potassium Potassium Chloride 91 L Carbon Dioxide 4 L* POC Total CO2 Anion Gap 31.0 H POC BUN BUN 27 H Creatinine 1.4 H Glucose 557 H* POC Glucose Hemoglobin A1c 12.0 H Calcium 7.8 L POC WB Ioniz Calcium Alkaline Phosphatase 126 H Total Protein Albumin Beta-Hydroxybutyrate Urine Protein Urine Glucose (UA) Urine Ketones Hyaline Casts Granular Casts Urine Mucus 01/06/23 01/06/23 01/06/23 12:55 11:12 11:09 WBC RBC Hgb Hct MCHC RDW Immature Gran % (Auto) Neut % (Auto) Lymph % (Auto) Lymph # (Auto) Archer # (Auto) Immature Gran # Absolute Neutrophils POC PT POC INR POC pH POC pCO2 POC pO2 POC HCO3 POC ABG Base Excess POC VBG pH 7.01 L* POC VBG pCO2 at Temp 16.4 L* POC VBG pO2 57 H POC VBG HCO3 4.1 L* POC VBG Total CO2 < 5.0 L POC Venous O2 Sat 74.0 H POC VBG Base Excess -27.0 L VBG Lactic Acid 4.6 H* Hgb O2 Saturation POC Sodium 129 L Sodium POC Potassium 6.2 H* Potassium Chloride Carbon Dioxide POC Total CO2 6.0 L* Anion Gap POC BUN 26 H BUN Creatinine Glucose POC Glucose 668 H* Hemoglobin A1c Calcium POC WB Ioniz Calcium 1.07 L Alkaline Phosphatase Total Protein Albumin Beta-Hydroxybutyrate Urine Protein 30 A Urine Glucose (UA) >=500 A Urine Ketones 80 A Hyaline Casts 9 H Granular Casts 1 H Urine Mucus Few A 01/06/23 01/06/23 01/06/23 11:03 11:03 11:03 WBC 24.3 H RBC Hgb Hct 51.2 H MCHC RDW 14.8 H Immature Gran % (Auto) 0.8 H Neut % (Auto) 92.4 H Lymph % (Auto) 2.6 L Lymph # (Auto) 0.63 L Archer # (Auto) 0.96 H Immature Gran # 0.19 H Absolute Neutrophils 22.46 H POC PT POC INR POC pH POC pCO2 POC pO2 POC HCO3 POC ABG Base Excess POC VBG pH POC VBG pCO2 at Temp POC VBG pO2 POC VBG HCO3 POC VBG Total CO2 POC Venous O2 Sat POC VBG Base Excess VBG Lactic Acid Hgb O2 Saturation POC Sodium Sodium 125 L POC Potassium Potassium 7.1 H* Chloride 90 L Carbon Dioxide 4 L* POC Total CO2 Anion Gap 31.0 H POC BUN BUN 26 H Creatinine 1.6 H Glucose 699 H* POC Glucose Hemoglobin A1c Calcium POC WB Ioniz Calcium Alkaline Phosphatase 145 H Total Protein Albumin Beta-Hydroxybutyrate 9.65 H Urine Protein Urine Glucose (UA) Urine Ketones Hyaline Casts Granular Casts Urine Mucus Meds: Medications Acetaminophen (Acetaminophen 325 Mg Tablet) 650 mg PO Q4-6HP PRN; Protocol PRN Reason: Per Pain Protocol/Fever > 101 Last Admin: 01/07/23 04:32 Dose: 650 mg Albuterol Sulfate (Albuterol Sulfate 60 Puff Inhaler) 2 puff INH Q4HP PRN PRN Reason: Shortness Of Breath Bisacodyl (Bisacodyl 10 Mg Supp.Rect) 10 mg CA Q2-3DAYS PRN PRN Reason: Constipation Cyclobenzaprine HCl (Cyclobenzaprine 10 Mg Tablet) 10 mg PO QPM [facility] Last Admin: 01/07/23 21:48 Dose: 10 mg Dextrose (Dextrose 50% 50 Ml Vial) 0 ml IV UD PRN PRN Reason: Per Sliding Scale Diagnostic Test (Pha) (Accu-Chek 1 Each Strip) 1 each FS ACHS [facility] Last Admin: 01/08/23 11:47 Dose: 1 each Ergocalciferol (Ergocalciferol (Vitamin D2) 50,000 Unit Capsule) 50,000 unit PO QWEEK [facility] Famotidine (Famotidine/Pf 20 Mg/2 Ml Vial) 20 mg IV Q12 [facility] Last Admin: 01/08/23 08:12 Dose: 20 mg Fluticasone Propionate (Fluticasone Propionate Morenci.Demetris) 1 spray NS QDAY [facility] Last Admin: 01/08/23 08:14 Dose: Not Given Glucose (Dextrose 31 Gm Oral.Susp) 15 gm PO PRN PRN PRN Reason: Hypoglycemia Hydroxyzine HCl (Hydroxyzine 25 Mg Tablet) 50 mg PO Q4-6HP PRN PRN Reason: anxiety Diltiazem HCl 125 mg/ Dextrose 125 mls @ 5 mls/hr IV Q24H [facility]; Protocol Last Titration: 01/07/23 16:30 Dose: 0 mg/hr, 0 mls/hr Insulin Human Regular 50 unit/ (Sodium Chloride) 100 mls @ 20 mls/hr IV DUR [facility]; Protocol Last Titration: 01/07/23 13:00 Dose: 0 unit/hr, 0 mls/hr Insulin Glargine (Insulin Glargine, Human 1 Unit/0.01 Ml) 20 unit SQ DAILY [facility] Last Admin: 01/08/23 09:14 Dose: 20 units Insulin Human Lispro (Insulin Lispro 1 Unit/0.01 Ml Unit) 0 unit SQ ACHS [facility]; Protocol Last Admin: 01/08/23 11:47 Dose: 15 unit Insulin Human Lispro (Insulin Lispro 1 Unit/0.01 Ml Unit) 9 unit SQ [facility] Last Admin: 01/08/23 11:47 Dose: 9 units Insulin Human Lispro (Insulin Lispro 1 Unit/0.01 Ml Unit) 3 unit SQ ONCE [facility] Stop: 01/08/23 15:00 Last Admin: 01/08/23 13:21 Dose: 3 units Levothyroxine Sodium (Levothyroxine 100 Mcg Tablet) 175 mcg PO ACB [facility] Last Admin: 01/08/23 08:12 Dose: 175 mcg Metoprolol Tartrate (Metoprolol Tartrate 25 Mg Tablet) 12.5 mg PO BID [facility] Last Admin: 01/08/23 08:12 Dose: 12.5 mg Nicotine (Nicotine 14 Mg Patch) 14 mg TOPICAL DAILY@1000 [facility] Last Admin: 01/08/23 13:59 Dose: 14 mg Ondansetron HCl (Ondansetron 4 Mg/2 Ml Vial) 4 mg IV Q4-6HP PRN; Protocol PRN Reason: Nausea And Vomiting Last Admin: 01/06/23 19:16 Dose: 4 mg Oxycodone/Acetaminophen (Oxycodone/Apap 5/325mg Tablet) 1 tab PO Q6HP PRN; Protocol PRN Reason: Per Pain Protocol Last Admin: 01/07/23 23:45 Dose: 1 tab Rimegepant [Nurtec Odt] 75 Mg Tablet, Disintegrating 1 dose PO QDAY [facility] Last Admin: 01/08/23 08:14 Dose: Not Given Dextroamphetamine- Amphetamine [ Adderall Xr] 20 Mg Tab 1 dose PO DAILY [facility] Last Admin: 01/08/23 08:14 Dose: Not Given Pregabalin (Pregabalin 150 Mg Capsule) 300 mg PO BID [facility] Last Admin: 01/08/23 08:11 Dose: 300 mg Senna (Sennosides 1 Tablet) 1 tab PO HSP PRN PRN Reason: Constipation Last Admin: 01/07/23 21:48 Dose: 1 tab Sodium Chloride (0.9 % Sodium Chloride 10 Ml Syringe) 10 ml IV Q8 [facility] Last Admin: 01/08/23 13:59 Dose: 10 ml Sodium Chloride (0.9 % Sodium Chloride 10 Ml Syringe) 10 ml IV Q12 [facility] Last Admin: 01/08/23 08:12 Dose: 10 ml Sodium Chloride (0.9 % Sodium Chloride 10 Ml Syringe) 10 ml IV UD PRN PRN Reason: FLUSH Last Admin: 01/08/23 05:15 Dose: 10 ml A/P Time Spent With Patient Time: Total time spent is greater than 50% in coordination of care (as documented) at patient's floor/unit and/or counseling patient: QUALITY VTE Deep Vein Thrombosis/Pulmonary Embolism Present on Admission: No
[2023-01-08] MEDS: DILTIAZEM 125 MG in DEXTROSE 5% IN WATER 100 ML IV SCH (15:13)
[2023-01-08] MEDS: CYCLOBENZAPRINE 10 MG TABLET PO SCH (20:46)
[2023-01-08] MEDS: SENNOSIDES 1 TABLET PO PRN (20:46)
[2023-01-09] MEDS: 0.9 % SODIUM CHLORIDE 10 ML SYRINGE IV SCH ×2 (05:41→10:03)
[2023-01-09 06:27] LABS: Basophils # (Auto) 0.08 K/mcL (0.00-0.30); Basophils % (Auto) 0.9 % (0.0-2.0); Eosinophils % (Auto) 2.4 % (0.0-7.0); Hemoglobin 14.5 g/dL (13.7-17.5); Lymphocytes # (Auto) 3.27 K/mcL (1.50-4.80); Lymphocytes % (Auto) 38.7 % (15.5-49.0); Mean Cell Volume 82.8 fL (80.0-100.0); Mean Corpuscular HGB Conc 35.4 g/dL (31.0-36.0); Mean Platelet Volume 11.3 fL (8.8-12.5); Monocytes # (Auto) 0.58 K/mcL (0.10-0.90); Monocytes % (Auto) 6.9 % (1.0-12.0); Neutrophils % (Auto) 50.9 % (38.0-78.0); Platelet Count 190 K/mcL (140-440); RBC 4.95 M/mcL (4.63-6.08); Red Cell Distribution Width 13.6 % (11.5-14.5); WBC 8.4 K/mcL (4.5-11.0)
[2023-01-09 07:00] LABS: ALT/SGPT 14 U/L (<40); AST/SGOT 18 U/L (<40); Albumin 3.4 gm/dL (3.2-5.2); Albumin/Globulin Ratio 1.3 (1.0-2.3); Alkaline Phosphatase 96 U/L (39-117); Bilirubin,Total 0.6 mg/dL (0.1-1.0); Blood Urea Nitrogen 13 mg/dL (6-20); Calcium 8.4 mg/dL (8.6-10.4); Carbon Dioxide 24 mmol/L (22-30); Chloride 101 mmol/L (96-108); Globulin 2.6 gm/dL (2.2-3.7); Glomerular Filtration Rate 106; Glucose 255 mg/dL (70-105)
--- NOTE | 2023-01-09 07:21 | EKG ---
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 Measurements Intervals [place] Rate: 145 P: [place]: QRS: 93 QRSD: 187 T: -23 QT: 297 QTc: 462 Interpretive Statements Atrial flutter Paired ventricular premature complexes Electronically Signed On 01-09-2023 7:20:57 PDT by Daniel Ivy M.D. /[id number]
--- NOTE | 2023-01-09 07:24 | EKG ---
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 Measurements Intervals [place] Rate: 113 P: [place]: QRS: 102 QRSD: 108 T: -5 QT: 385 QTc: 529 Interpretive Statements Atrial flutter Paired ventricular premature complexes Right axis deviation Electronically Signed On 01-09-2023 7:24:03 PDT by Daniel Ivy M.D. /[email or web address]/[id number]
--- NOTE | 2023-01-09 07:26 | EKG ---
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 Measurements Intervals [place] Rate: 68 P: 2 MS: 196 QRS: 72 QRSD: 102 T: 25 QT: 387 QTc: 412 Interpretive Statements Sinus rhythm Nonspecific T abnormalities, lateral leads Electronically Signed On 01-09-2023 7:26:24 PDT by Daniel Ivy M.D. /[email or web address]/[id number]
--- NOTE | 2023-01-09 07:28 | EKG ---
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 Measurements Intervals [place] Rate: 104 P: [place]: QRS: 59 QRSD: 151 T: 48 QT: 384 QTc: 504 Interpretive Statements Junctional tachycardia INCOMPLETE RIGHT BUNDLE BRANCH BLOCK Electronically Signed On 01-09-2023 7:28:18 PDT by Daniel Ivy M.D. /[email or web address]/[id number]
[2023-01-09] MEDS: INSULIN LISPRO 1 UNIT/0.01 ML UNIT SQ SCH ×2 (07:33)
[2023-01-09] MEDS: LEVOTHYROXINE 100 MCG TABLET PO SCH (07:34)
[2023-01-09] MEDS ORDERED: INSULIN LISPRO 1 UNIT/0.01 ML UNIT SQ SCH (08:14)
--- NOTE | 2023-01-09 08:41 | Discharge Summary ---
Discharge Provider Provider IMPORTANT FOLLOW-UP INFORMATION FOR PCP: Patient information: Note initiated : 01/09/23 at 8:32 am Service Date, if different from initiated Date: [] Patient: Bo Kee 47 y/o M admitted on 01/06/23 for DKA. Chief Complaint: [] Date of admission: 01/06/23 16:15 Discharge date: 01/09/23 Primary care physician: Sulma Rasmussen NP Consults: 01/06/23 Consult to Physician [CONS] Stat Comment: Consulting Provider: Ivan Abebe Reason For Exam: Physician to Consult COURSE Hospital Course Hospital course: Hospital course 47-year-old male with history of poorly controlled diabetes mellitus 1, noncompliance with medication, hypertension, hypothyroidism, anxiety, PTSD, ADHD, GERD presented with nausea, vomiting, generalized weakness, palpitations for the past 5 to 7 days. Patient is on insulin pump but this stopped working around 7 days ago. Since then he has been guessing insulin dose and giving himself insulin intermittently without following any protocol and has not checked his blood glucose for the past 1 week. He gave himself insulin yesterday but does not know how much. Apparently he called customer support for his insulin pump but was unable to take care of that. His significant other reported that patient is also somewhat confused. On evaluation patient was tachycardic with heart rate ranging from 116-140s, tachypneic with respiratory rate 28-43. Blood pressure was slightly elevated. EKG showed atrial flutter, with heart rate 145 bpm. Troponin obtained was negative. Patient did not have any chest pain., Labs showed leukocytosis of 24,000, hemoglobin 16.3, VBG with pH 7.01, bicarb 4.1 bicarbonate is 4.1. Lactic acid is 4.6. Potassium 6.2. Glucose of 699. Creatinine is within normal limits. Potassium is 6.2, corrected sodium is 138. Chest x-ray showed no acute finding. UA unremarkable. No apparent source of infection. Patient was admitted to ICU for severe diabetic ketoacidosis, metabolic encephalopathy atrial flutter, hyperkalemia on IV insulin DKA protocol. 01/07. Patient seen and examined. Overnight patient converted into sinus rhythm and diltiazem drip was discontinued. Leukocytosis is down to 12,000. Patient metabolic acidosis is resolved, anion gap is now normal and bicarb drip is discontinued. Potassium is 3.2 and will be replaced. He is still on IV insul in, blood glucose has improved to 165, he will be transition to subcutaneous along acting insulin sliding scale since patient insulin pump is not functioning. Per patient the insulin pump settings are 2.2 units/h of NovoLog and then it adjusts according to his mealtime carb intake however he does not know how much. 01/08 he is off IV insulin however blood glucose is elevated around 260 this morn ing, will start him on scheduled mealtime insulin and continue with sliding scale and basal insulin. WBC normalized. Sodium 134, potassium is within normal range now 3.6 after repletion. 01/09 overnight patient blood glucose was 160. This morning it is 255. He feels back to baseline. He would like to be discharged on Lantus and Humalog mealtime and will follow-up with diabetic clinic as outpatient in order to get a new insulin pump. Heart rate remains in 80s, sinus rhythm on metoprolol Discharge diagnoses Severe diabetic ketoacidosis, beta-hydroxybutyrate 9.65, lactic acid 4.6, PH 7.01, bicarb 4.1 on VBG, chem with CO2 of 4, AG 31 Anion gap acidosis Status post DKA protocol, status post bicarb drip DKA resolved Insulin dose adjusted Patient now on Lantus 20 units daily, mealtime Humalog 10 units with each meal and sliding scale Patient will follow-up with diabetic clinic in order to get a new insulin pump. Diabetes mellitus 2 with hyperglycemia of 699 Patient with noncompliance with insulin. Insulin pump stopped working 7 days ago. HbA1c 12. See above Acute kidney injury Creatinine 1.6 on admission improved to 0.8 with IV hydration. Noncompliance with medical therapy Counseled on compliance Hyperkalemia Resolved Metabolic encephalopathy Secondary to DKA and severe acidosis. Now resolved Atrial flutter with RVR Likely in the setting of acute illness and hyperkalemia and electrolyte imbalance. Patient converted to sinus rhythm diltiazem gtt. was discontinued. Patient [id number] 2 score is 1 only. Troponin negative 2D echocardiogram with EF 70-75%, left ventricle and right ventricle systolic function normal, regional wall motion abnormality cannot be excluded due to limited visualization, no significant valvular dysfunction. Significant leukocytosis UA and chest x-ray negative. Leukocytosis resolved Heart rate stable on metoprolol Hyponatremia Resolving Hypertension Initially blood pressure was elevated, blood pressure now stable on home dose antihypertensives Hypothyroidism On levothyroxine 200 mcg daily home dose Asthma Continue fluticasone nasal spray and as needed albuterol Anxiety, PTSD, ADHD Continue home dose Adderall, hydroxyzine GERD On Pepcid CODE STATUS Full code Physical examination Alert, awake, no distress Normocephalic, atraumatic Oral mucosa is moist S1 and S2, regular rate and rhythm, no murmurs heard Abdomen soft and nontender Alert, no focal deficits Mood appears stable Skin with no erythema, normal skin turgor Total time 40 minutes Discharge diagnosis: Diabetic ketoacidosis, acute kidney injury, hyperkalemia Time Spent with Patient Time attestation: Total time spent providing and/or coordinating discharge services: Time spent: Greater than 30 minutes EXAM Constitutional Vitals: Temp Pulse Resp BP Pulse Ox O2 Del Method 97.9 F 82 16 126/98 100 Room Air 01/09/23 07:31 01/09/23 07:31 01/09/23 07:31 01/09/23 07:31 01/09/23 07:31 01/09/23 07:31 Discharge Data Data Completed and Pending Labs on day of discharge: Labs from last 24 hours 01/09/23 01/09/23 01/08/23 05:48 05:47 05:17 WBC 8.4 RBC 4.95 Hgb 14.5 Hct 41.0 MCV 82.8 MCH 29.3 MCHC 35.4 RDW 13.6 Plt Count 190 MPV 11.3 Immature Gran % (Auto) 0.2 Neut % (Auto) 50.9 Lymph % (Auto) 38.7 [place] % (Auto) 6.9 Eos % (Auto) 2.4 Baso % (Auto) 0.9 Lymph # (Auto) 3.27 [place] # (Auto) 0.58 Eos # (Auto) 0.20 Baso # (Auto) 0.08 Immature Gran # 0.02 Absolute Neutrophils 4.29 Sodium 135 Potassium 3.6 Chloride 101 Carbon Dioxide 24 Anion Gap 10.0 BUN 13 Creatinine 0.8 GFR Calculation 106 Glucose 255 H Calcium 8.4 L Magnesium 2.1 Total Bilirubin 0.6 AST 18 ALT 14 Alkaline Phosphatase 96 Total Protein 6.0 Albumin 3.4 Globulin 2.6 Albumin/Globulin Ratio 1.3 Preliminary micro results at discharge 01/06/23 00:04 Blood Culture - Preliminary Blood 01/06/23 15:06 Blood Culture - Preliminary Blood Discharge Plan Patient/Caregiver Discharge Instructions Activity: increase activity as tolerated Instructions: Diabetic Ketoacidosis (DC) Prescriptions: New famotidine 20 mg Tablet 20 mg PO BID Qty: 30 0RF metoprolol tartrate 25 mg Tablet 12.5 mg PO BID Qty: 60 0RF insulin glargine [Lantus Solostar U-100 Insulin] 100 unit/mL (3 mL) insulin pen 20 unit subcut QAM Qty: 6 0RF Humalog KwikPen Insulin 200 unit/mL (3 mL) insulin pen 10 unit subcut TID Qty: 12 0RF Continued ibuprofen 800 mg tablet 800 mg PO TID Nurtec ODT 75 mg tablet,disintegrating 75 mg PO QDAY Rx Instructions: as a single dose pregabalin 300 mg capsule 300 mg PO BID lisinopril 10 mg tablet 10 mg PO BID ergocalciferol (vitamin D2) 1,250 mcg (50,000 unit) capsule 1,250 mcg PO QWEEK Rx Instructions: Takes it on Wednesdays methocarbamol 500 mg tablet 500 mg PO TID PRN (Reason: Pain) cyclobenzaprine 10 mg tablet 10 mg PO QPM albuterol sulfate 90 mcg/actuation HFA aerosol inhaler 2 puff inhalation Q4H levothyroxine 175 mcg Tablet 175 mcg PO DAILY olanzapine 10 mg tablet 10 mg PO QPM hydroxyzine HCl 50 mg tablet 50 mg PO Q4-6HP PRN (Reason: anxiety) diazepam 5 mg tablet 5 mg PO DAILY dextroamphetamine-amphetamine [Adderall XR] 30 mg capsule,extended release 24hr 20 mg PO DAILY Patient Comments: [NO ORIGINAL SIG] No Action insulin aspart U-100 [Novolog U-100 Insulin aspart] 100 unit/mL solution 100 unit subcut DAILY Protocol: Insulin Sliding Scale, Low Condition: HUMALOG/NOVALOG SC SLIDING Dose/Route: SCALE Condition: FSBS < 70 Dose/Route: Give 4 Oz juice, or 15gm oral Instruction: Glucose, or 25ml D50W IV if Dose/Route: unable to take PO. Recheck in Instruction: 15 min and repeat if FSBS < 70 Condition: FSBS 71-140 Dose/Route: NO COVERAGE Condition: FSBS 141-170 Dose/Route: 1 UNITS Condition: FSBS 171-200 Dose/Route: 2 UNITS Condition: FSBS 201-250 Dose/Route: 3 UNITS Condition: FSBS 251-300 Dose/Route: 4 UNITS Condition: FSBS 301-350 Dose/Route: 6 UNITS Condition: FSBS 351-400 Dose/Route: 8 UNITS Condition: FSBS > 400 Dose/Route: 10 UNITS; REPEAT Q2H X2 Instruction: CONTINUE FOLLOWING SLIDING Condition: SCALE; IF STILL > 400; CALL Dose/Route: PHYSICIAN Rx Instructions: "INJECT VIA INSULIN PUMP DIRECTED UP TO 100 UNITS PER DAY. Basal rate at 2.25 units/hr Other Ambulatory Orders: Blood Glucose Strips (Routine) Location: None Selected Ordered By: Ivan bAebe Follow Up Plan Follow up with: Sulma Rasmussen NP-C [Primary Care Provider] - Patient Disposition: Home, Self-Care Rehab Potential: Good I certify that the patient requires SNF services: No Overall status at discharge: patient is back to baseline Discharge Orders: Discharge Order (Routine); Ordered 01/09/23 Ordered By: Ivan Abebe QUALITY VTE Deep Vein Thrombosis/Pulmonary Embolism Present on Admission: No
[2023-01-09] MEDS ORDERED: FAMOTIDINE 20 MG TABLET PO SCH (09:00)
[2023-01-09] MEDS: METOPROLOL TARTRATE 25 MG TABLET PO SCH (09:18)
[2023-01-09] MEDS: PREGABALIN 150 MG CAPSULE PO SCH (09:18)
[2023-01-09] MEDS: INSULIN GLARGINE, HUMAN 1 UNIT/0.01 ML SQ SCH (09:21)
[2023-01-09] MEDS: DEXTROAMPHETAMINE AMPHETAMINE 20 MG PO SCH (10:02)
[2023-01-09] MEDS: RIMEGEPANT 75 MG PO SCH (10:02)
[2023-01-09] MEDS: FLUTICASONE PROPIONATE SPRAY.NAS NS SCH (10:02)
[2023-01-09] MEDS: NICOTINE 14 MG PATCH TOPICAL SCH (10:03)
[2023-01-13] MEDS ORDERED: ERGOCALCIFEROL (VITAMIN D2) 50,000 UNIT CAPSULE PO SCH (09:00)
== END 2023-01-09 10:00 | disposition home or self-care (01) | DRG 637 ==
LOC: ED 09:56 → ICU 16:15 → MEDSUR 01-08 19:25
PROVIDERS: ADMIT Internal Medicine; ATTEND Internal Medicine